=== PATIENT | female | born 1985 | race Caucasian/White ===

== ENCOUNTER → 2019-05-15 | Outpatient (CLI) | payer OTHER ==
--- NOTE | 2019-05-15 15:01 | US ---
EXAMINATION TYPE: US pelvis complete transvag DATE OF EXAM: 05/15/2019 COMPARISON: Pelvic ultrasound dated 02/09/2017 CLINICAL HISTORY: N83.202 unspecified ovary left side cyst. Hx of ovarian cysts. TECHNIQUE: Transvaginal (TV) and Transabdominal (TA) . Transabdominal sonographic images of the pel vis were acquired. Transvaginal sonographic images were medically necessary to better assess the fol lowing anatomy EXAM MEASUREMENTS: Uterus: 9.9 x 4.4 x 4.3 cm Endometrial Stripe: .5 cm Right Ovary: Obscured by bowel gas. cm Left Ovary: 5.0 x 3.7 x 4.0 cm 1. Uterus: wnl 2. Endometrium: wnl 3. Right Ovary: Obscured by overlying bowel gas 4. Left Ovary: Cystic area seen 3.9 x 3.8 x 3.0 cm. Spectral, color and waveform doppler imaging shows good arterial and venous flow within the left ov slime; there is no evidence for ovarian torsion. 5. Bilateral Adnexa: wnl 6. Posterior cul-de-sac: wnl IMPRESSION: 1. Left ovarian cyst measures 3.9 cm and appears simple, anechoic and typically benign in a premenopa usal female. Follow-up ultrasound could be performed in 3 menstrual cycles to ensure resolution. 2. Obscuration of the right ovary by overlying bowel gas.
== END | disposition home or self-care (01) ==
LOC: MERGE 12:20 → RADUSWWP 13:25
PROVIDERS: ATTEND Family Medicine
DX: N83.292 Other ovarian cyst, left side (principal)
CPT/HCPCS: 76830; 76856

== ENCOUNTER → 2020-09-24 | Outpatient (CLI) | payer MEDICARE, OTHER ==
--- NOTE | 2020-09-24 13:26 | CONS ---
CONSULTATION REASON FOR THE EVALUATION: Sleep apnea. Caitlyn is 35. She is known to me and her last evaluation was 2016 and she is being considered a new patient for now. She has chronic problems with depression and she is maintained on multiple antidepressant medications. I diagnosed this patient with obstructive sleep apnea back in 2014 and I gave her an AHI of 20 and she was treated with a CPAP pressure of 9 cm of water for chronic excessive daytime sleepiness. Over the years, she was lost to followup. She continued to use her CPAP. She has gained around 40 pounds and currently she is up to 269 pounds from a baseline of 230. She is still utilizing the same machine and her machine is functional and she is using a Simplus full-face mask, small size. Nevertheless, the patient tells me that she is having issues with snoring and sometimes she wakes up gasping despite being on the CPAP unit. I checked the CPAP machine. The machine is functional and she is averaging around 12.7 hours of CPAP use per night. Her CPAP use for more than 4 hours 100% with a leak of 6 L/minutes and her AHI is down to 2.4. She is having at times difficulty and she would need a Climate[employer]. No other complaints otherwise for now. Merrifield score is elevated as the patient is having increased tiredness and sleepiness along with her snoring overnight and her Merrifield score is currently at 12. She is averaging many hours of sleep and some times she wears her CPAP unit even when she is awake. PAST MEDICAL HISTORY: Depression, hypothyroidism, anxiety and obstructive sleep apnea. PAST SURGICAL HISTORY: Cholecystectomy and . DRUG ALLERGIES: Not known. OUTPATIENT MEDICATION LIST: Outpatient medication list includes trazodone 200 mg p.o. q. day, Trokendi 150 mg p.o. q. day, Celexa 40 mg p.o. q. day, Wellbutrin 100 mg p.o. q. day, levothyroxine 100 mcg p.o. q. day, Zofran on a p.r.n. basis, Xanax 0.5 on a p.r.n. basis and ibuprofen 800 mg on an as-needed basis. SOCIAL HISTORY: The patient is a nonsmoker. No history of alcoholism. No history of drugs. FAMILY HISTORY: Positive for heart disease, hyperlipidemia, and obstructive sleep apnea. REVIEW OF SYSTEMS: Fourteen-point review of system was done. Positive findings are mentioned in history of present illness, otherwise negative. Main abnormality noted is her ongoing history of depression and ongoing weight gain in the order of 40 pounds that was noted since her last evaluation back in 2016. No heartburn. No chest pain. No suicidal attempts. PHYSICAL EXAMINATION: VITAL SIGNS: BP is 118/79, pulse 94, respirations 16, temperature 98.6, saturation 97% on room air. Height is 5 feet 5 inches. Weight is 269, BMI is 44.7. Merrifield score is 3. Neck size 18 inches. GENERAL APPEARANCE: Calm, comfortable, obese. HEAD: Atraumatic, normocephalic. NECK: Supple. No JVD. No goiter or neck masses. Mallampati class 4. LUNGS: Clear to auscultation. HEART: Heart sounds are regular rate and rhythm. Normal S1, S2. No S3, S4. No murmurs. ABDOMEN: Soft, nontender. No organomegaly. EXTREMITIES: No edema. No cyanosis or clubbing. IMPRESSION: 1. Obstructive sleep apnea. The patient has moderate severe disease based on a previous sleep study that was done in 2014 with an AHI of 20, currently on CPAP pressure of 9. Merrifield score is up to 12 and the patient is having issues with snoring and some of her sleep apnea symptoms are clinically back and this is probably related to her 40-pound weight gain. Nevertheless, the compliance data shows that her treatment is effective and successful and she has been averaging adequate number of hours of sleep and her AHI is less than 5 while on treatment. She is pretty sure that she is snoring while on the treatment. 2. Obesity with interval weight gain. Current body mass index is 44.7. 3. History of depression. 4. Hypothyroidism. 5. Chronic anxiety. PLAN: 1. Encourage weight loss. 2. Keep the same mask interface. 3. Keep the same CPAP unit and switch it to an APAP mode, pressure minimum of 9, maximum of 20 and the patient will come and see me back in 6 weeks time to be re- evaluated. I am interested on seeing if she is going to improve while being on an APAP mode at least clinically and I am also interested in evaluating the average pressure delivered by the machine and if needed, I am going to increase the CPAP pressure accordingly. If all these measures fail, she may need another CPAP titration. I am hoping that with the above-mentioned adjustments, the patient's condition will be optimized. Refills were given. 4. See me back in 6 weeks time in followup. ISABELLA / SIMONA: [id number] /
== END | disposition home or self-care (01) ==
LOC: SLEEP 10:43
PROVIDERS: ATTEND Internal Medicine Critical Care Medicine
DX: G47.33 Obstructive sleep apnea (adult) (pediatric) (principal); E03.9 Hypothyroidism, unspecified; E66.9 Obesity, unspecified; F41.9 Anxiety disorder, unspecified; Z68.41 Body mass index [BMI] 40.0-44.9, adult; Z79.890 Hormone replacement therapy; Z86.59 Personal history of other mental and behavioral disorders
CPT/HCPCS: 99211

== ENCOUNTER → 2021-01-07 | Outpatient (CLI) | payer MEDICARE, OTHER ==
--- NOTE | 2021-01-07 17:14 | PN ---
PROGRESS NOTE Caitlyn is a 35 coming in for annual check regarding obstructive sleep apnea. She has history of severe depression. She is currently on a combination of antidepressants including trazodone and Celexa and Wellbutrin. She also takes Topamax for mood stabilizer. Doing well. Sleeping approximately 10 hours per day. She is taking trazodone 200 mg once a day and she needs her trazodone for history of depression. I checked her CPAP machine. The patient has an APAP unit at a pressure of 9 minimum, 20 maximum. Based on the compliance data, she has been using her machine every night. Her usage is for more than 4 hours is 100%, averaging around 10.9 hours of APAP use per night. Average pressure delivered by the machine is around 14.1 cm and her AHI is down to 0.9. Roachdale score is at 9. Doing well in general. There is an interval history of weight gain over many years, yet none over the past one year. REVIEW OF SYSTEMS: Fourteen-point review of system was done. Positive findings are mentioned above in history of present illness. PHYSICAL EXAMINATION: BP is 110/71, pulse 96, respirations 16, temperature 97.7, weight is 269, height is 5 feet 4 inches. Roachdale score is at 9. BMI 45.1. GENERAL APPEARANCE: Calm comfortable, obese. HEAD atraumatic, normocephalic. NECK: Supple. No JVD. No goiter or neck masses. Mallampati class 4. LUNGS: Diminished. Otherwise clear. HEART: Heart sounds are regular rate and rhythm. Normal S1, S2. No S3, S4. No murmurs. ABDOMEN: Soft, nontender. No organomegaly. EXTREMITIES: No edema, no cyanosis or clubbing. NEUROLOGIC: Awake and alert. There is no focal neurological deficits. PSYCHIATRIC: Negative for anxiety or depression. IMPRESSION: 1. Severe obstructive sleep apnea and the patient has been maintained on CPAP therapy for many years. Her baseline AHI is 20.3, worse in the supine body position with an AHI of 37.5 while supine. The patient has been successfully treated with CPAP therapy, which is in the form of APAP, minimum pressure of 9, maximum pressure of 20. 2. Obesity, BMI of 45.1. 3. Hypersomnia. 4. Depression. PLAN: Continue same pressure setting. Continue same mask interface. Encourage weight loss. Continue anti depression treatment. Treatment is successful. No need for any further changes. We will continue to follow. MMODL / IJN: [id number] /
== END | disposition home or self-care (01) ==
LOC: SLEEP 15:18
PROVIDERS: ATTEND Internal Medicine Critical Care Medicine
DX: G47.33 Obstructive sleep apnea (adult) (pediatric) (principal); G47.10 Hypersomnia, unspecified; F32.9 Major depressive disorder, single episode, unspecified; E66.9 Obesity, unspecified; Z68.42 Body mass index [BMI] 45.0-49.9, adult; Z79.899 Other long term (current) drug therapy

== ENCOUNTER → 2021-02-07 | Outpatient (CLI) | payer MEDICARE, OTHER ==
--- NOTE | 2021-02-08 05:12 | MR ---
EXAMINATION TYPE: MR brain wo con DATE OF EXAM: 02/07/2021 COMPARISON: 11/05/2018 HISTORY: Right sided facial dropp, right sided palsy, right side weakness, peripheral vison loss. Multiplanar multiecho imaging of the brain with no contrast. Ventricles have normal size. There is no mass effect nor midline shift. There is no sign of intracran ial hemorrhage. Diffusion images show no evidence of an acute infarct. There are scattered white praneeth er high signal foci in both cerebral hemispheres. The largest measures 6 mm in the right parietal lob e. Total number is approximately 7. Most of these are small and less than 3 mm. The brainstem is inta ct. Cerebellum is intact. Corpus callosum is intact. Sella turcica appears normal. There is no eviden ce of orbital mass. IMPRESSION: Scattered white matter high signal foci also present on old exam and appear not significantly differe nt. This is nonspecific and could relate to microvascular ischemia or demyelinating disease. There is significant clearing of the maxillary sinusitis compared to old exam.
== END | disposition home or self-care (01) ==
LOC: RADMRIMAIN 17:44
PROVIDERS: ATTEND Ophthalmology
DX: G51.0 Bell's palsy (principal); H53.462 Homonymous bilateral field defects, left side
CPT/HCPCS: 70551

== ENCOUNTER → 2021-07-31 | Outpatient (CLI) | payer MEDICARE, OTHER ==
[2021-07-31 13:43] VITALS: BP 155/92; PULSE 99; TEMP 98; BMI 47.9
--- NOTE | 2021-07-31 14:13 | P.HPBAR ---
Bariatric H&P - History & Physicial H&P Date: 07/31/21 History & Physicial: Visit/CC: initial clinic visit Patient initial contact: Initial weight: Initial weight in pounds: Height: 5 ft 5 in Initial BMI: Last weight: Current weight: 130.635 kg Current weight in pounds: 288.00 Current BMI: 47.9 Harrington body weight (based on NIH guidelines): 56.699 kg Excess body weight loss: The patient is a 36 year-old F who presents for Bariatric Assessment. 36-year-old female here today for evaluation of morbid obesity. Patient states she has struggled with her weight and her entire life. Current BMI 47.9. The patient suffers from diabetes, sleep apnea, depression, anxiety, hypothyroidism. Surgical history includes laparoscopic cholecystectomy and . Denies any history of DVT, GERD or dysphasia. Patient says she quit smoking cigarettes but is now sleeping occasionally. She does use a nicotine based vapor solution. Review of Systems The patient denies any acute changes in vision or hearing, no dysphagia or odynophagia, no chest pain or shortness of breath, no dysuria or hematuria, no headache, no runny nose, no rectal bleeding or melena, no unexplained weight loss Past Medical History Past Medical History: Sleep Apnea/CPAP/BIPAP, Thyroid Disorder Additional Past Medical History / Comment(s): Uses CPAP, enlarged adrenal gland. [facility] History of Any Multi-Drug Resistant Organisms: None Reported Past Surgical History: Section, Cholecystectomy Past Anesthesia/Blood Transfusion Reactions: Family History of Problems w/ Anesthesia, Postoperative Nausea & Vomiting (PONV) Additional Past Anesthesia/Blood Transfusion Reaction / Comm: Mother and sister PONV Smoking Status: Never smoker - Past Family History Mother Family Medical History: No Reported History Surgical - Exam Vital Signs Temp Pulse BP 98 F 99 155/92 07/31/21 13:41 07/31/21 13:41 07/31/21 13:41 Physical exam: General: Well-developed, well-nourished HEENT: Normocephalic, sclerae nonicteric Abdomen: Nontender, nondistended Extremities: No edema Neuro: Alert and oriented Bariatric Assessment & Plan (1) Morbid obesity with BMI of 45.0-49.9, adult Narrative/Plan: 36-year-old female with morbid obesity. Surgical options to treat morbid obesity reviewed in detail. Both gastric bypass and sleeve gastrectomy discussed along with the associated risks and benefits. Patient remains interested in sleeve gastrectomy at this time. We'll schedule for upper endoscopy at this time. Patient will continue to work on nicotine cessation. Patient will follow-up in the office after upper endoscopy completed. Status: Acute Bariatric Checklist Checklist: Plan: Checklist: EGD: 1. Hiatal hernia: 2. H. Pylori: HgbA1c: Vitamin D: Smoking: Current every day smoker Primary care physician referral: Psychiatry clearance: Cardiology clearance: Sleep study: Diet journal: VTE risk score: VTE risk level: Rehab needs at discharge:
== END | disposition home or self-care (01) ==
LOC: BARWHC3 13:19
PROVIDERS: ATTEND Surgery
DX: E66.01 Morbid (severe) obesity due to excess calories (principal); Z68.42 Body mass index [BMI] 45.0-49.9, adult
CPT/HCPCS: 99211

== ENCOUNTER → 2021-08-01 | Outpatient (CLI) | payer MEDICARE, OTHER ==
[2021-08-01 19:37] LABS: Folate, Serum 6.9 ng/mL (4.40-31.00)
== END | disposition home or self-care (01) ==
LOC: LABWHC1 10:52
PROVIDERS: ATTEND Surgery
DX: E66.01 Morbid (severe) obesity due to excess calories (principal); K90.89 Other intestinal malabsorption; E55.9 Vitamin D deficiency, unspecified
CPT/HCPCS: 36415; 82306; 82607; 82746; 83540; 84425

== ENCOUNTER 2021-09-02 09:17 | Day surgery (SDC) | payer MEDICARE, OTHER ==
[2021-08-29 10:15] VITALS: BMI 49.4
[~2021-09-02 09:17] MED LIST: LACTATED RINGERS 1,000 ML IV SCH; LIDOCAINE 1% (10MG/ML) FOR IV START INTRADERMA PRN
[2021-09-02 10:14] VITALS: RESP 16; TEMP 97.9
[2021-09-02 10:16] LABS: Glucose,Whole Blood 126 mg/dL (75-99)
[2021-09-02] MEDS ORDERED: LIDOCAINE 1% INJ 10MG/ML (20 ML MDV) ONE (11:01)
[2021-09-02] MEDS ORDERED: PROPOFOL 10 MG/ML 20 ML VIAL IV ONE (11:01)
--- NOTE | 2021-09-02 11:04 | P.GSHP ---
History of Present Illness H&P Date: 09/02/21 Chief Complaint: GERD, presurgical 36-year-old female here today for upper endoscopy. Being evaluated for sleep gastrectomy. Mild reflux at times. No pain. Past Medical History Past Medical History: Diabetes Mellitus, Sleep Apnea/CPAP/BIPAP, Thyroid Disorder Additional Past Medical History / Comment(s): Uses CPAP, tinea versicolor-fungus on back , chest & neck., migraines. History of Any Multi-Drug Resistant Organisms: None Reported Past Surgical History: Section, Cholecystectomy Past Anesthesia/Blood Transfusion Reactions: Postoperative Nausea & Vomiting (PONV) Additional Past Anesthesia/Blood Transfusion Reaction / Comment(s): Mother=ponv Past Psychological History: Anxiety, Bipolar, Depression, Panic Disorder Smoking Status: Former smoker, Vaper Past Alcohol Use History: None Reported Additional Past Alcohol Use History / Comment(s): quit smoking 1 year ago (2020) and started vaping, quit vaping Jul. hx of 1 ppd, started smoking age 13. Past Drug Use History: None Reported - Past Family History Mother Family Medical History: No Reported History Medications and Allergies Home Medications Medication Instructions Recorded Confirmed Type ALPRAZolam [Xanax] 0.5 mg PO Q8HR PRN 11/03/14 09/02/21 History Levothyroxine Sodium [Synthroid] 100 mcg PO DAILY 11/03/14 09/02/21 History Ondansetron Odt [Zofran Odt] 4 - 8 mg PO DIRECTED PRN 11/03/14 09/02/21 History traZODone HCL [Desyrel] 200 mg PO HS 12/13/18 09/02/21 History Ibuprofen [Motrin] 800 mg PO DIRECTED PRN 07/31/21 09/02/21 History Ramelteon 8 mg PO HS 07/31/21 09/02/21 History SUMAtriptan SUCCINATE [Imitrex] 25 mg PO DIRECTED PRN 07/31/21 09/02/21 History Topiramate 50 mg PO DAILY 07/31/21 09/02/21 History lamoTRIgine [lamoTRIgine ER] 50 mg PO HS 07/31/21 09/02/21 History Brendan/D3/Mag11/Zinc/Instrument Tech/Richy/Bor 1 each PO DAILY 08/29/21 09/02/21 History [Caltrate 600+D Plus Tablet] Cyclobenzaprine [Flexeril] 10 mg PO HS 08/29/21 09/02/21 History Vilazodone HCl [Viibryd] 40 mg PO HS 08/29/21 09/02/21 History buPROPion SR [Wellbutrin SR] 150 mg PO DAILY 08/29/21 09/02/21 History metFORMIN HCL [metFORMIN HCL ER] 1,000 mg PO BID 08/29/21 09/02/21 History Allergies Allergy/AdvReac Type Severity Reaction Status Date / Time No Known Allergies Allergy Verified 09/02/21 10:11 Surgical - Exam Vital Signs Temp Pulse Resp BP Pulse Ox 97.9 F 92 16 136/90 94 L 09/02/21 09:54 09/02/21 09:54 09/02/21 09:54 09/02/21 09:54 09/02/21 09:54 Physical exam: General: Well-developed, well-nourished HEENT: Normocephalic, sclerae nonicteric Abdomen: Nontender, nondistended Extremities: No edema Neuro: Alert and oriented Results - Labs Abnormal Lab Results - Last 24 Hours (Table) 09/02/21 Range/Units 10:05 POC Glucose (mg/dL) 126 H (75-99) mg/dL Assessment and Plan (1) GERD (gastroesophageal reflux disease) Narrative/Plan: Will proceed with upper endoscopy Current Visit: Yes Status: Acute Code(s): K21.9 - GASTRO-ESOPHAGEAL REFLUX DISEASE WITHOUT ESOPHAGITIS SNOMED Code(s): 430568875
--- NOTE | 2021-09-02 11:13 | P.PCN ---
Date of Procedure: 09/02/21 Procedure(s) Performed: Preoperative Dx: GERD, presurgical Postoperative Dx: Gastritis Procedure: EGD with Bx Anesthesia: Sedation Endoscopist: Dr. Vicente Specimens: Antrum Endoscopic Procedure: The patient was on the endoscopy table in the left decubitus position. The Olympus gastroscope was inserted into the oropharynx and passed under direct visualization to the region of the third portion of the duodenum. From that point the scope was slowly withdrawn inspecting all surfaces carefully. There were no neoplastic inflammatory or polypoid lesions throughout the duodenum. The pylorus was widely patent. The stomach was carefully inspected. There was diffuse gastritis present. The mucosa appeared slightly thickened. There was no ulcerations. A biopsy of the antrum took place to rule out H. pylori. Retroflexion revealed a normal hiatus. The esophagus was then carefully examined. There were no neoplastic inflammatory or polypoid lesions throughout the visualized esophagus. The patient was then taken to the recovery room in stable condition per anesthesia guidelines. Recommendations: Begin antiacid therapy. Await biopsy results. Follow-up bariatric clinic.
[2021-09-02 11:38] VITALS: BP 103/68; PULSE 93
== END 2021-09-02 11:59 | disposition home or self-care (01) ==
LOC: ORWHC2ENDO 09:17
PROVIDERS: ATTEND Surgery
DX: K29.50 Unspecified chronic gastritis without bleeding (principal); K21.9 Gastro-esophageal reflux disease without esophagitis; E11.9 Type 2 diabetes mellitus without complications; G47.33 Obstructive sleep apnea (adult) (pediatric); E07.9 Disorder of thyroid, unspecified; G43.909 Migraine, unspecified, not intractable, without status migrainosus; F41.9 Anxiety disorder, unspecified; F31.9 Bipolar disorder, unspecified; F41.0 Panic disorder [episodic paroxysmal anxiety]; F17.290 Nicotine dependence, other tobacco product, uncomplicated; Z79.84 Long term (current) use of oral hypoglycemic drugs; Z79.890 Hormone replacement therapy; Z79.899 Other long term (current) drug therapy
CPT/HCPCS: 81025; 88305; 84703; 43239; J2001; J2704

== ENCOUNTER → 2021-09-08 | Outpatient (CLI) | payer MEDICARE, OTHER ==
[2021-09-08 11:02] VITALS: BMI 48.6
== END | disposition home or self-care (01) ==
LOC: BARWHC3 08:47
PROVIDERS: ATTEND Surgery
DX: E66.01 Morbid (severe) obesity due to excess calories (principal); Z71.3 Dietary counseling and surveillance
CPT/HCPCS: 97804

== ENCOUNTER → 2021-09-09 | Outpatient (CLI) | payer MEDICARE, OTHER ==
[2021-09-10 15:47] LABS: Anabasine Urine <2.0 ng/mL (<2.0)
== END | disposition home or self-care (01) ==
LOC: LABWHC1 12:15
PROVIDERS: ATTEND Surgery
DX: Z71.51 Drug abuse counseling and surveillance of drug abuser (principal)
CPT/HCPCS: 80323

== ENCOUNTER → 2021-09-16 | Outpatient (CLI) | payer MEDICARE, OTHER ==
[2021-09-16 13:10] VITALS: BP 138/84; PULSE 101; RESP 16; TEMP 98.1; BMI 48.1
--- NOTE | 2021-09-16 13:45 | P.BASOAP ---
Subjective Progress Note Date: 09/16/21 Principal diagnosis: Morbid obesity Patient returns for evaluation. Underwent recent EGD showing mild gastritis. She was H. pylori negative. She had a recent nicotine test that was negative. Otherwise no new changes to her history and physical from previous. Objective - Vital Signs Vital signs: Vital Signs Temp 98.1 F 09/16/21 13:08 Pulse 101 H 09/16/21 13:08 Resp 16 09/16/21 13:08 BP 138/84 09/16/21 13:08 Pulse Ox Intake & Output 09/15/21 09/16/21 09/16/21 18:59 06:59 18:59 Weight 131.088 kg - Exam Abdomen: Soft, nontender, nondistended Assessment/Plan (1) Morbid obesity with BMI of 45.0-49.9, adult Narrative/Plan: 36-year-old female with morbid obesity and associated comorbidities. We'll schedule for upcoming sleeve gastrectomy. Discussed with patient that this may or may not be performed robotically on the date chosen which is tentatively 11/03. The risks of bleeding, infection, stenosis, stricture, leak, abscess, fistula formation, peritonitis, poor weight loss, reflux, vomiting, conversion to an open procedure, aborting sleeve gastrectomy, FL, PE, DVT, and were discussed. The patient understands and wishes to proceed. Plan: Date: 09/16/21 Initial Weight: 130.805 kg Initial BMI: 47.9 Current Weight: 131.088 kg Current BMI: 48.1 Type of Surgery: Total Volume in Band: Previous Volume: Volume Removed: Volume Added: Band Size:
== END | disposition home or self-care (01) ==
LOC: BARWHC3 12:43
PROVIDERS: ATTEND Surgery
DX: E66.01 Morbid (severe) obesity due to excess calories (principal); Z68.42 Body mass index [BMI] 45.0-49.9, adult
CPT/HCPCS: 99211

== ENCOUNTER → 2021-09-17 | Outpatient (CLI) | payer MEDICARE, OTHER ==
--- NOTE | 2021-09-17 09:27 | US ---
EXAMINATION TYPE: US abdomen limited DATE OF EXAM: 09/17/2021 COMPARISON: CT, US CLINICAL HISTORY: R94.5 ABNORMAL RESULTS OF LIVER FUNCTION STUDIES. Abnormal results of liver functio n studies. Hx cholecystectomy. EXAM MEASUREMENTS: Liver Length: 20.8 CBD: Not seen with certainty, measured at 0.37 cm. Right Kidney: 13.0 x 7.0 x 5.2 cm. Limited due to body habitus and overlying bowel gas. Pancreas: Tail not well seen. Liver: Appears enlarged, very coarse in echotexture, increased attenuation. Gallbladder: Prior cholecystectomy. Evidence for sonographic Lima's sign: No CBD: Not seen with certainty, measured at 0.37 cm. Right Kidney: Appears enlarged. No hydronephrosis or masses seen. IMPRESSION: Hepatomegaly with underlying hepatic steatosis.
== END | disposition home or self-care (01) ==
LOC: RADUSWWP 08:46
PROVIDERS: ATTEND Family Medicine
DX: R94.5 Abnormal results of liver function studies (principal)
CPT/HCPCS: 76705

== ENCOUNTER → 2021-11-06 | Outpatient (CLI) | payer MEDICARE, OTHER ==
[2021-11-06 14:31] LABS: Basophils # (A) 0.02 X 10*3/uL (0.00-0.10); Basophils % (A) 0.3 %; Eosinophils # (A) 0.14 X 10*3/uL (0.04-0.35); Eosinophils % (A) 2.1 %; HCT 44.2 % (37.2-46.3); HGB 14.8 g/dL (12.0-15.0); Immature Grans, Automated 0.4 %; Lymphocytes # (A) 3.57 X 10*3/uL (0.90-5.00); Lymphocytes % (A) 52.8 %; MCH 31.6 pg (27.0-32.0); MCHC 33.5 g/dL (32.0-37.0); MCV 94.4 fL (80.0-97.0); Mean Platelet Volume 9.8 fL (9.5-12.2); Monocytes # (A) 0.32 X 10*3/uL (0.20-1.00); Monocytes % (A) 4.7 %; NRBC Per 100 WBC 0 /100 WBCS (0.0-0.0); Neutrophils # (A) 2.68 X 10*3/uL (1.80-7.70); Neutrophils % (A) 39.7 %; Platelet Count 191 X 10*3/uL (140-440); RBC 4.68 X 10*6/uL (4.10-5.20); WBC 6.76 X 10*3/uL (4.50-10.00)
[2021-11-06 15:18] LABS: African American GFR (CKD) 119.4 (60.0-200.0); Albumin/Globulin Ratio 1.28 (1.60-3.17); Anion Gap 13.1 mmol/L (10.00-18.00); BUN/Creat Ratio 18.57 Ratio (12.00-20.00); Blood Urea Nitrogen 13.8 mg/dL (9.0-27.0); Calcium 9.6 mg/dL (8.7-10.3); Globulin 3.2 g/dL (1.6-3.3); Potassium 4.3 mmol/L (3.5-5.5); Total Bilirubin 0.2 mg/dL (0.30-1.20); Total Protein 7.2 g/dL (6.2-8.2)
== END | disposition home or self-care (01) ==
LOC: LABPAT 08:30
PROVIDERS: ATTEND Surgery
DX: Z01.812 Encounter for preprocedural laboratory examination (principal)
CPT/HCPCS: 36415; 80053; 85025

== ENCOUNTER 2021-11-10 06:21 | Inpatient (IN) | payer MEDICARE, OTHER ==
[~2021-11-10 06:21] MED LIST changes: +DEXAMETHASONE SOD PHOSPHATE 4 MG/ML 1 ML VIAL IV ONE; +ENOXAPARIN 40 MG/0.4 ML SYRINGE SQ PRN; +HYDROmorphone 0.5 MG/0.5 ML SYRINGE IVP PRN; -LACTATED RINGERS 1,000 ML IV SCH; +MIDAZOLAM 2 MG/2 ML VIAL IV PRN; +ONDANSETRON 4 MG/2 ML VIAL IVP ONE; +ceFAZolin 3 GM in SODIUM CHLORIDE 0.9% 100 ML IVPB PRN
[2021-11-10] MEDS: LACTATED RINGERS 1,000 ML IV SCH ×2 (07:19→23:58)
[2021-11-10 07:26] LABS: Glucose,Whole Blood 129 mg/dL (75-99)
--- NOTE | 2021-11-10 07:28 | P.GSHP ---
History of Present Illness H&P Date: 11/10/21 Chief Complaint: Morbid obesity 36-year-old female here today for elective sleeve gastrectomy. Patient was seen first in July at the bariatric clinic. Initial BMI 47.9, today's BMI 47.0. Patient suffers from diabetes and sleep apnea depression anxiety hypothyroidism. Past surgical history includes laparoscopic cholecystectomy and . Patient had recent nicotine testing done reportedly normal. No history of DVT or dysphagia. Past Medical History Past Medical History: Diabetes Mellitus, Sleep Apnea/CPAP/BIPAP, Thyroid Disorder Additional Past Medical History / Comment(s): Uses CPAP, hypopigmented areas on back , chest & neck, seeing derm. soon, migraines. History of Any Multi-Drug Resistant Organisms: None Reported Past Surgical History: Section, Cholecystectomy Past Anesthesia/Blood Transfusion Reactions: Postoperative Nausea & Vomiting (PONV) Additional Past Anesthesia/Blood Transfusion Reaction / Comment(s): Mother=ponv Smoking Status: Former smoker, Vaper - Past Family History Mother Family Medical History: No Reported History Medications and Allergies Home Medications Medication Instructions Recorded Confirmed Type ALPRAZolam [Xanax] 0.5 mg PO Q8HR PRN 11/03/14 11/10/21 History Levothyroxine Sodium [Synthroid] 100 mcg PO DAILY 11/03/14 11/10/21 History Ondansetron Odt [Zofran Odt] 4 - 8 mg PO DIRECTED PRN 11/03/14 11/10/21 History traZODone HCL [Desyrel] 200 mg PO HS 12/13/18 11/10/21 History Ibuprofen [Motrin] 800 mg PO DIRECTED PRN 07/31/21 11/06/21 History Ramelteon 8 mg PO HS 07/31/21 11/10/21 History SUMAtriptan SUCCINATE [Imitrex] 25 mg PO DIRECTED PRN 07/31/21 11/10/21 History Topiramate 50 mg PO DAILY 07/31/21 11/10/21 History lamoTRIgine [lamoTRIgine ER] 50 mg PO HS 07/31/21 11/10/21 History Brendan/D3/Mag11/Zinc/Drafter Seismograph/Richy/Bor 1 each PO DAILY 08/29/21 11/06/21 History [Caltrate 600+D Plus Tablet] Cyclobenzaprine [Flexeril] 10 mg PO HS 08/29/21 11/10/21 History Vilazodone HCl [Viibryd] 40 mg PO HS 08/29/21 11/10/21 History buPROPion SR [Wellbutrin SR] 150 mg PO DAILY 08/29/21 11/10/21 History metFORMIN HCL [metFORMIN HCL ER] 1,000 mg PO AC-SUPPER 08/29/21 11/10/21 History Allergies Allergy/AdvReac Type Severity Reaction Status Date / Time No Known Allergies Allergy Verified 11/10/21 06:48 Surgical - Exam Vital Signs Temp Pulse Resp BP Pulse Ox 97.9 F 104 H 16 117/64 95 11/10/21 07:01 11/10/21 07:01 11/10/21 07:01 11/10/21 07:01 11/10/21 07:01 Physical exam: General: Well-developed, well-nourished HEENT: Normocephalic, sclerae nonicteric Abdomen: Nontender, nondistended Extremities: No edema Neuro: Alert and oriented Results - Labs Abnormal Lab Results - Last 24 Hours (Table) 11/10/21 Range/Units 07:19 POC Glucose (mg/dL) 129 H (75-99) mg/dL Assessment and Plan (1) Morbid obesity with BMI of 45.0-49.9, adult Narrative/Plan: 36-year-old female with morbid obesity and associated comorbidities. We'll proceed with the da Mandy assisted laparoscopic sleeve gastrectomy, possible open. The risks of bleeding, infection, stenosis, stricture, leak, abscess, fistula formation, peritonitis, poor weight loss, reflux, vomiting, conversion to an open procedure, aborting sleeve gastrectomy, MT, PE, DVT, and were discussed. The patient understands and wishes to proceed. Current Visit: No Status: Acute Code(s): E66.01 - MORBID (SEVERE) OBESITY DUE TO EXCESS CALORIES; Z68.42 - BODY MASS INDEX [BMI] 45.0-49.9, ADULT SNOMED Code(s): 007021968
[2021-11-10] MEDS ORDERED: ACETAMINOPHEN IV (For NPO) 1,000 MG in EMPTY BAG 1 BAG IVPB STA (07:37)
[2021-11-10] MEDS ORDERED: SCOPOLAMINE 1 MG/72 HR PATCH TRANSDERM ONE (07:45)
[2021-11-10] MEDS ORDERED: LABETALOL 5 MG/ML VIAL MDV ONE (07:51)
[2021-11-10] MEDS ORDERED: GLYCOPYRROLATE 0.2 MG/ML 2 ML VIAL ONE (07:51)
[2021-11-10] MEDS ORDERED: ROCURONIUM 10 MG/ML (5 ML VIAL) IV ONE (07:51)
[2021-11-10] MEDS ORDERED: MIDAZOLAM 2 MG/2 ML VIAL ONE (07:51)
[2021-11-10] MEDS ORDERED: LIDOCAINE 2% INJ 20 MG/ML (2 ML VIAL) ONE (07:51)
[2021-11-10] MEDS ORDERED: SUCCINYLCHOLINE CHLORIDE 100 MG/5 ML SYR IV ONE (07:51)
[2021-11-10] MEDS ORDERED: PROPOFOL 10 MG/ML 20 ML VIAL IV ONE (07:51)
[2021-11-10] MEDS ORDERED: NEOSTIGMINE 1 MG/ML 10 ML VIAL ONE (07:51)
[2021-11-10] MEDS ORDERED: fentaNYL (PF) 50 MCG/ML 2 ML AMP ONE (07:51)
[2021-11-10] MEDS ORDERED: HYDROmorphone (PF) 1 MG/ML ONE (07:51)
[2021-11-10] MEDS ORDERED: BUPIVACAIN-EPI 0.25%-1:200,000 30 ML VIAL SQ ONE ×2 (08:16)
[2021-11-10] MEDS ORDERED: LACTATED RINGERS 1,000 ML IV ONE (09:19)
[2021-11-10] MEDS ORDERED: SIMETHICONE 40 MG/0.6 ML DROPS 2,000 MG/30 ML BOTTLE PO PRN (10:14)
[2021-11-10] MEDS ORDERED: diphenhydrAMINE 50 MG/ML 1 ML VIAL IVP PRN (10:14)
[2021-11-10] MEDS ORDERED: HYOSCYAMINE ORAL DROPS 1.875 MG/15 ML BOTTLE PO PRN (10:14)
[2021-11-10] MEDS ORDERED: NALOXONE 0.4 MG/ML 1 ML VIAL IV PRN (10:14)
--- NOTE | 2021-11-10 10:28 | P.OP ---
Date of Procedure: 11/10/21 Procedure(s) Performed: PREOPERATIVE DIAGNOSIS: Morbid obesity, diabetes, sleep apnea, hypothyroidism POSTOPERATIVE DIAGNOSIS: Same PROCEDURE: Da Mandy assisted laparoscopic sleeve gastrectomy SURGEON: Jules EBL: 20 mL ANESTHESIA: General COMPLICATIONS: None OPERATIVE PROCEDURE: Patient was placed in the operating table in the supine position. She was placed under general anesthesia at that time. The abdomen was prepped and draped in the usual sterile fashion. A 5 mm optical trocar was placed in the left periumbilical location 20 cm inferior to the xiphoid process. Insufflation took place up to 15 mmHg. No adhesions were seen. An additional 12 mm trocar was placed in the right paramedian location and 2 additional 8 mm trochars were placed in the left upper quadrant laterally. All of these trochars were placed along the same plane. The initial 5 was then switched to an 8 mm trocar. A 5 mm subxiphoid incision was made and the medium Brook retractor was used to elevate the left lobe of liver anteriorly. This was held in place using the fixed arm retractor. The robot was then docked appropriately. The 8 mm camera was placed in the left paramedian trocar site directed downwards. A fenestrated bipolar was placed in arm 1, arm 3 had the vessel sealer, arm 4 had the tip up retractor. The hiatus was inspected and there was no visible hiatal hernia. At that point I moved to the mid aspect of the greater curvature the stomach. The short gastric vasculature were divided using the vessel sealer. This dissection took place distally until we were 4 cm from the pylorus. The posterior adhesions were divided as well. The dissection then took place proximally along the stomach until the posterior short gastrics were divided and the fundus of the stomach was fully mobilized. Once the stomach was fully mobilized the blunt tipped 40-Slovenian bougie dilator was advanced into the stomach and advanced all the way to the prepyloric location. The patient's stomach by palpation seemed to be average or slightly less than average in thickness. The green load stapler was first utilized. No buttressing was utilized. 2 firings of the green load stapler took place and then we switched to the blue load. The last 2 firings of the stapler were white load. The stomach was then placed in the right upper quadrant after it was fully excised. The oral gastric tube was reinserted. The stomach was insufflated with approximately 100 mL of methylene blue. No evidence of leak or obstruction was seen. 2 areas of bleeding were seen along the staple line. One was close to the initial firing of the green load stapler and this was controlled using the eye polar cautery sparingly. The other was along the mid aspect of the sleeve and controlled using a 5 mm clipper. Tisseel fibrin glue was used along the length of the staple line. The robot was then undocked. The da Mandy laparoscope was used and the stomach was removed from the 12 mm trocar site without difficulty. The fascia at the 12mm site was closed using interrupted 0 Vicryl sutures with the laparoscopic suture passer and Jak Serenity technique. The insufflation was evacuated. The skin at all 5 incisions were closed using 4-0 Monocryl sutures. Skin glue was then applied. DISPOSITION: Stable to recovery room
[2021-11-10 12:05] LABS: Glucose,Whole Blood 174 mg/dL (75-99)
[2021-11-10] MEDS: ACETAMINOPHEN IV (For NPO) 1,000 MG in EMPTY BAG 1 BAG IVPB SCH ×4 (12:08→23:59)
[2021-11-10] MEDS: 0.9% NACL WITH KCL 20 MEQ/L 1,000 ML IV SCH ×2 (12:09→19:12)
[2021-11-10] MEDS ORDERED: ALPRAZolam 0.5 MG TAB PO PRN (12:31)
[2021-11-10] MEDS ORDERED: TEMAZEPAM 15 MG CAP PO PRN (12:31)
[2021-11-10] MEDS ORDERED: SUMAtriptan succinate 25 MG TAB PO PRN (12:31)
[2021-11-10] MEDS: ALBUTEROL NEBULIZED 2.5 MG/3 ML INHALATION SCH ×3 (13:24→20:51)
--- NOTE | 2021-11-10 13:58 | P.CONS ---
History of Present Illness - Reason for Consult Consult date: 11/10/21 Requesting physician: Bryan Vicente - History of Present Illness This is a pleasant 36 year old female who is evaluated today post operative Da Mandy assisted laparoscopic sleeve gastrectomy with Dr Vicente. We are asked to see in consultation regarding management for patients chronic conditions including diabetes mellitus, depression, anxiety, bipolar, sleep apnea with CPAP use, hypothyroidism. Patient has a previous history also of laproscopic cholecystectomy and section. Patient is a former smoker quit earlier this year. Current home medications include trazodone, Lamictal, viibryd, Topamax, Imitrex, Wellbutrin, ramelteon, Flexeril, Xanax. She takes metformin once daily, and takes levothyroxine. Preoperative blood count unremarkable, preoperative blood glucose in the 130s, most recent A1c of 7.9 in July of this year. Liver enzymes also elevated preoperatively. Patient is afebrile, heart rate 70 tachycardic 102, blood pressure 140/79, she is 95% on 2L nasal cannula, she does not wear oxygen at home. Tolerated procedure well and is evaluated on the floor. She is anxious to be able to get up and out of bed. REVIEW OF SYSTEMS: CONSTITUTIONAL: No fever, no malaise, no fatigue. HEENT: No recent visual problems or hearing problems. Denied any sore throat. CARDIOVASCULAR: No chest pain, orthopnea, PND, no palpitations, no syncope. PULMONARY: No shortness of breath, no cough, no hemoptysis. GASTROINTESTINAL: No diarrhea, no nausea, no vomiting, no abdominal pain. NEUROLOGICAL: No headaches, no weakness, no numbness. HEMATOLOGICAL: Denies any bleeding or petechiae. GENITOURINARY: Denies any burning micturition, frequency, or urgency. MUSCULOSKELETAL/RHEUMATOLOGICAL: Denies any joint pain, swelling, or any muscle pain. ENDOCRINE: Denies any polyuria or polydipsia. The rest of the 14-point review of systems is negative. PHYSICAL EXAMINATION: GENERAL: The patient is alert and oriented x3, not in any acute distress. Well developed, well nourished. Obese. HEENT: Pupils are round and equally reacting to light. EOMI. No scleral icterus. No conjunctival pallor. Normocephalic, atraumatic. No pharyngeal erythema. No thyromegaly. CARDIOVASCULAR: S1 and S2 present. No murmurs, rubs, or gallops. PULMONARY: Chest is clear to auscultation, no wheezing or crackles. ABDOMEN: Soft, tender, mild distention, post surgical abdomen. MUSCULOSKELETAL: No joint swelling or deformity. EXTREMITIES: No cyanosis, clubbing, or pedal edema. NEUROLOGICAL: Gross neurological examination did not reveal any focal deficits. SKIN: No rashes. Assessment and Plan Assessment Morbid obesity post operative laproscopic sleeve gastrectomy Diabetes Mellitus type 2 with hyperglycemia Sleep apnea with CPAP use Hypothyroidism Anxiety / Depression / Bipolar / Panic Disorder History of migraines Former tobacco use Obesity GI Prophylaxis DVT Prophylaxis as per primary Full Code Plan Resume appropriate home medications Hold metformin Novolog s/s for blood glucose coverage, accuchecks ACHS Continue with NPO with Ice chips diet Upper GI tomorrow morning Encourage IS Encourage ambulation Repeat labs in AM Thank you kindly for this consultation. The impression and plan of care has been dictated by Kely Goetz, Nurse Practitioner as directed. Dr. Katerin MD I have performed a history and physical examination and medical decision making of this patient, discussed the same with the dictator, and agree with the dictators assessment and plan as written, documented as a scribe. Based on total visit time, I have performed more than 50% of this visit. Past Medical History Past Medical History: Diabetes Mellitus, Sleep Apnea/CPAP/BIPAP, Thyroid Di sorder Additional Past Medical History / Comment(s): Uses CPAP, hypopigmented areas on back , chest & neck, seeing derm. soon, migraines. History of Any Multi-Drug Resistant Organisms: None Reported Past Surgical History: Section, Cholecystectomy Past Anesthesia/Blood Transfusion Reactions: Postoperative Nausea & Vomiting (PONV) Additional Past Anesthesia/Blood Transfusion Reaction / Comm: Mother=ponv Smoking Status: Former smoker, Vaper - Past Family History Mother Family Medical History: No Reported History Medications and Allergies Home Medications Medication Instructions Recorded Confirmed Type ALPRAZolam [Xanax] 0.5 mg PO Q8HR PRN 11/03/14 11/10/21 History Levothyroxine Sodium [Synthroid] 100 mcg PO DAILY 11/03/14 11/10/21 History Ondansetron Odt [Zofran Odt] 4 - 8 mg PO DIRECTED PRN 11/03/14 11/10/21 History traZODone HCL [Desyrel] 200 mg PO HS 12/13/18 11/10/21 History Ibuprofen [Motrin] 800 mg PO DIRECTED PRN 07/31/21 11/06/21 History Ramelteon 8 mg PO HS 07/31/21 11/10/21 History SUMAtriptan SUCCINATE [Imitrex] 25 mg PO DIRECTED PRN 07/31/21 11/10/21 History Topiramate 50 mg PO DAILY 07/31/21 11/10/21 History lamoTRIgine [lamoTRIgine ER] 50 mg PO HS 07/31/21 11/10/21 History Brendan/D3/Mag11/Zinc/Rotary Swaging Machine Operator/Richy/Bor 1 each PO DAILY 08/29/21 11/06/21 History [Caltrate 600+D Plus Tablet] Cyclobenzaprine [Flexeril] 10 mg PO HS 08/29/21 11/10/21 History Vilazodone HCl [Viibryd] 40 mg PO HS 08/29/21 11/10/21 History buPROPion SR [Wellbutrin SR] 150 mg PO DAILY 08/29/21 11/10/21 History metFORMIN HCL [metFORMIN HCL ER] 1,000 mg PO AC-SUPPER 08/29/21 11/10/21 History Allergies Allergy/AdvReac Type Severity Reaction Status Date / Time No Known Allergies Allergy Verified 11/10/21 06:48 Physical Exam Vitals: Vital Signs Temp Pulse Pulse Resp BP BP Pulse Ox 11/10/21 13:00 100 140/79 91 L 11/10/21 12:45 99 138/90 11/10/21 12:30 102 H 136/89 95 11/10/21 12:15 103 H 157/92 11/10/21 12:00 104 H 148/85 96 11/10/21 11:45 98 153/84 95 11/10/21 11:30 98.5 F 96 17 144/85 94 L 11/10/21 11:16 93 16 142/68 98 11/10/21 11:01 94 16 137/73 98 11/10/21 10:46 89 16 143/74 98 11/10/21 10:31 100 16 135/74 98 11/10/21 10:15 98 F 97 16 117/66 98 11/10/21 07:01 97.9 F 104 H 16 117/64 95 Intake and Output 11/09/21 11/10/21 11/10/21 22:59 06:59 14:59 Intake Total 1700 Output Total 20 Balance 1680 Intake: IV 1700 Output: Estimated Blood Loss 20 Other: Weight 128 kg Results Labs: Abnormal Lab Results - Last 24 Hours (Table) 11/10/21 11/10/21 Range/Units 07:19 12:03 POC Glucose (mg/dL) 129 H 174 H (75-99) mg/dL Assessment and Plan Time with Patient: Less than 30
[2021-11-10] MEDS: INSULIN ASPART (NovoLOG) 100 UNIT/ML VIAL SQ SCH ×3 (14:07→21:10)
[2021-11-10] MEDS ORDERED: ALPRAZolam 0.5 MG TAB PO STA (15:06)
[2021-11-10 16:21] LABS: Glucose,Whole Blood 147 mg/dL (75-99)
[2021-11-10] MEDS: HYDROmorphone 1 MG/ML 1 ML SYRINGE IVP PRN (17:30)
[2021-11-10] MEDS: ONDANSETRON 4 MG/2 ML VIAL IVP PRN (17:35)
[2021-11-10 21:08] LABS: Glucose,Whole Blood 115 mg/dL (75-99)
[2021-11-10] MEDS: lamoTRIgine 25 MG TAB PO SCH (21:20)
[2021-11-10] MEDS ORDERED: LORazepam 2 MG/ML INJ IV ONE (21:30)
[2021-11-11] MEDS: 0.9% NACL WITH KCL 20 MEQ/L 1,000 ML IV SCH ×4 (01:59→17:55)
[2021-11-11] MEDS: LEVOTHYROXINE 100 MCG TAB PO SCH (02:23)
[2021-11-11] MEDS: HYDROmorphone 1 MG/ML 1 ML SYRINGE IVP PRN (03:56)
[2021-11-11] MEDS: ONDANSETRON 4 MG/2 ML VIAL IVP PRN ×3 (04:00→23:12)
[2021-11-11] MEDS: ACETAMINOPHEN IV (For NPO) 1,000 MG in EMPTY BAG 1 BAG IVPB SCH ×4 (06:13→23:14)
[2021-11-11 06:49] LABS: Glucose,Whole Blood 100 mg/dL (75-99)
[2021-11-11] MEDS: INSULIN ASPART (NovoLOG) 100 UNIT/ML VIAL SQ SCH ×4 (08:40→20:54)
[2021-11-11] MEDS: ENOXAPARIN 30 MG/0.3 ML SYRINGE SQ SCH (08:41)
[2021-11-11] MEDS: lamoTRIgine 25 MG TAB PO SCH ×3 (08:42→21:05)
[2021-11-11] MEDS: PANTOPRAZOLE 40 MG/10 ML VIAL IV SCH (08:42)
[2021-11-11] MEDS: buPROPion SR 150 MG TABLET.ER PO SCH (08:42)
[2021-11-11] MEDS: TOPIRAMATE 25 MG TAB PO SCH (08:43)
[2021-11-11 09:14] LABS: Basophils # (A) 0.03 X 10*3/uL (0.00-0.10); Basophils % (A) 0.3 %; Eosinophils # (A) 0.03 X 10*3/uL (0.04-0.35); Eosinophils % (A) 0.3 %; HCT 38.4 % (37.2-46.3); HGB 12.7 g/dL (12.0-15.0); Immature Grans, Automated 0.5 %; Lymphocytes # (A) 3.71 X 10*3/uL (0.90-5.00); Lymphocytes % (A) 37.5 %; MCH 31.6 pg (27.0-32.0); MCHC 33.1 g/dL (32.0-37.0); MCV 95.5 fL (80.0-97.0); Monocytes # (A) 0.55 X 10*3/uL (0.20-1.00); Monocytes % (A) 5.6 %; NRBC Per 100 WBC 0 /100 WBCS (0.0-0.0); Neutrophils # (A) 5.52 X 10*3/uL (1.80-7.70); Neutrophils % (A) 55.8 %; Platelet Count 185 X 10*3/uL (140-440); RBC 4.02 X 10*6/uL (4.10-5.20); WBC 9.89 X 10*3/uL (4.50-10.00)
[2021-11-11] MEDS: ALBUTEROL NEBULIZED 2.5 MG/3 ML INHALATION SCH ×3 (09:17→15:25)
--- NOTE | 2021-11-11 09:22 | FL ---
EXAMINATION TYPE: FL UGI DATE OF EXAM: 11/11/2021 LIMITED UGI: CLINICAL HISTORY: Morbid Obesity, gastric sleeve surgery yesterday. TECHNIQUE: Limited esophagram is performed utilizing 30oz of Isovue-370. A total of 2 minutes and 9 seconds of fluoroscopic time was utilized during procedure and 32 images obtained. COMPARISON: None. FINDINGS: The patient swallowed contrast without difficulty or delay. Esophageal peristalsis and mo tility are within normal limits. There is good flow of contrast along the diaphragmatic hiatus into proximal stomach and mild to moderate delay in flow into gastric sleeve through proximal anastomosis. There is oown-dt-[id number] delay in flow at distal anastomosis from distal sleeve into the pylorus an d duodenal sweep. Patient remains asymptomatic without increased nausea. There is no evidence of cont rast extravasation to suggest leak. Cholecystectomy clips incidentally seen. IMPRESSION: No evidence of leak or significant obstruction status post recent gastric sleeve surgery.
[2021-11-11] MEDS ORDERED: LEVOTHYROXINE 100 MCG TAB PO ONE (09:37)
[2021-11-11 09:38] LABS: Blood Urea Nitrogen 7.6 mg/dL (9.0-27.0); Calcium 8.4 mg/dL (8.7-10.3); Magnesium 2.1 mg/dL (1.5-2.4); Non-African American GFR(CKD) 116.4 (60.0-200.0); Phosphorus 2.8 mg/dL (2.4-5.1); Potassium 4.1 mmol/L (3.5-5.5)
[2021-11-11 11:27] LABS: Glucose,Whole Blood 97 mg/dL (75-99)
--- NOTE | 2021-11-11 11:35 | P.PN ---
Subjective Progress Note Date: 11/11/21 CHIEF COMPLAINT: Morbid obesity HISTORY OF PRESENT ILLNESS: Patient is postop day #1 status post laparoscopic sleeve gastrectomy. Patient's upper GI shows no evidence of leak or obstruction. She will start him. clear liquids. She denies any nausea or vomiting. She complains of some abdominal pain mostly on the right side. She is denies any flatus. She has been up and ambulating. Patient reports feeling very anxious. Her last dose of Xanax was yesterday. She has not received any Xanax today. She usually takes Xanax 0.5 mill grams 3 times a day as well as being on trazodone. Patient reports at this time she does not want be on trazodone since she is not eating solids. However, she is crying and reports feeling very anxious. Afebrile. WBC 9.89 hemoglobin 12.7 platelets 185 sodium 140 potassium 4.1 creatinine 0.6 magnesium 2.1 PHYSICAL EXAM: VITAL SIGNS: Reviewed. GENERAL: Well-developed in no acute distress. HEENT: No sclera icterus. Extraocular movements grossly intact. Moist buccal mucosa. Head is atraumatic, normocephalic. ABDOMEN: Soft. Nondistended. Incision sites clean, dry and intact. Abdominal binder in place NEUROLOGIC: Alert and oriented. Cranial nerves II through XII grossly intact. ASSESSMENT: 1. Morbid obesity status post laparoscopic sleeve gastrectomy 2. Diabetes mellitus 3. Obstructive sleep apnea 4. Hypothyroidism PLAN: -Start bariatric clear liquid diet -Add IV Toradol for pain control -Change Xanax to 0.5 mg 3 times a day scheduled to help with anxiety -Continue IV fluids -Encourage patient to ambulate -Encourage patient to use incentive spirometer -DVT prophylaxis Lovenox and GI prophylaxis Protonix Physician Instructional Media Services Technician note has been reviewed by physician. Signing provider agrees with the documented findings, assessment, and plan of care. I have personally seen and examined the patient, reviewed the ARMATURE WINDER /PAs history, exam and MDM and agree with the assessment and plan as written. Based on total visit time, I have performed more than 50% of the visit. As above: Patient more anxious today. Her nausea and pain are actually less than expected. She has ambulated. Labs noted. Upper GI with slight delay. Begin bariatric liquids. Add Toradol. Increase anxiolytics. Objective - Vital Signs Vital signs: Vital Signs Temp 98.7 F 11/11/21 07:08 Pulse 95 11/11/21 09:33 Resp 18 11/11/21 07:08 BP 133/80 11/11/21 07:08 Pulse Ox 94 L 11/11/21 09:18 Intake & Output 11/10/21 11/11/21 11/11/21 18:59 06:59 18:59 Intake Total 2900 1100 Output Total 20 1450 Balance 2880 -350 Weight 128 kg Intake: IV 1700 Intake, IV Titration 1100 1100 Amount 0.9% NaCl with KCl 20 Meq 900 1000 /l 1,000 ml @ 150 mls/hr IV .Q6H40M [facility] Rx#: [id number] ACETAMINOPHEN IV (For NPO 200 ) 1,000 mg In Empty Bag 1 bag @ 400 mls/hr IVPB Q6HR [facility] Rx#:[id number] ACETAMINOPHEN IV (For NPO 100 ) 1,000 mg In Empty Bag 1 bag @ 400 mls/hr IVPB Q6HR [facility] Rx#:[id number] Oral 100 Output: Urine 1450 Estimated Blood Loss 20 Other: Voiding Method Toilet Toilet # Voids 3 1 - Labs CBC & Chem 7: 11/11/21 05:01 11/11/21 05:01 Labs: Abnormal Lab Results - Last 24 Hours (Table) 11/10/21 11/10/21 11/10/21 Range/Units 12:03 16:16 21:06 RBC (4.10-5.20) X 10*6/uL Immature Gran # (0.00-0.04) X 10*3/uL Eosinophils # (0.04-0.35) X 10*3/uL BUN (9.0-27.0) mg/dL POC Glucose (mg/dL) 174 H 147 H 115 H (75-99) mg/dL Calcium (8.7-10.3) mg/dL 11/11/21 11/11/21 11/11/21 Range/Units 05:01 05:01 06:45 RBC 4.02 L (4.10-5.20) X 10*6/uL Immature Gran # 0.05 H (0.00-0.04) X 10*3/uL Eosinophils # 0.03 L (0.04-0.35) X 10*3/uL BUN 7.6 L (9.0-27.0) mg/dL POC Glucose (mg/dL) 100 H (75-99) mg/dL Calcium 8.4 L (8.7-10.3) mg/dL
[2021-11-11] MEDS: KETOROLAC 15 MG/ML 1 ML VIAL IVP SCH ×3 (11:36→23:14)
[2021-11-11] MEDS: ALPRAZolam 0.5 MG TAB PO SCH ×3 (11:38→23:12)
[2021-11-11] MEDS ORDERED: LORazepam 2 MG/ML INJ IV STA ×2 (11:56)
[2021-11-11] MEDS ORDERED: LORazepam 2 MG/ML INJ IV PRN (12:09)
[2021-11-11 13:15] VITALS: BMI 46.9
--- NOTE | 2021-11-11 13:46 | P.PN ---
Subjective Progress Note Date: 11/11/21 This is a pleasant 36 year old female who is evaluated today post operative Da Mandy assisted laparoscopic sleeve gastrectomy with Dr Vicente. We are asked to see in consultation regarding management for patients chronic conditions including diabetes mellitus, depression, anxiety, bipolar, sleep apnea with CPAP use, hypothyroidism. Patient has a previous history also of laproscopic cholecystectomy and section. Patient is a former smoker quit earlier this year. Current home medications include trazodone, Lamictal, viibryd, Topamax, Imitrex, Wellbutrin, ramelteon, Flexeril, Xanax. She takes metformin once daily, and takes levothyroxine. Preoperative blood count unremarkable, preoperative blood glucose in the 130s, most recent A1c of 7.9 in July of this year. Liver enzymes also elevated preoperatively. Patient is afebrile, heart rate 70 tachycardic 102, blood pressure 140/79, she is 95% on 2L nasal cannula, she does not wear oxygen at home. Tolerated procedure well and is evaluated on the floor. She is anxious to be able to get up and out of bed. 11/11/2021 Patient evaluated today resting bed. She is on CPAP which she uses during the night. Patient is tearful during examination states that she feels that she is going to have another panic attack today. She did get a one-time dose of IV Ativan throughout the evening and is requesting another dose today. We will order a one-time dose of IV Ativan again. Labs today are essentially unremarkable, RBC 4.02, BUN 7.6, creatinine 0.6, blood glucose in the 100s, calcium 8.4. She is afebrile, heart rate 95, blood pressure 142/68, oxygen saturation 94-95%. She has been up ambulating and using the restroom, denies passing gas ever she is burping. Denies abdominal pain. Upper GI series has been completed and she will start a bariatric clear liquid diet today as per primary. Review of Systems Constitutional: Denied any fatigue denied any fever. Reports anxiety/panic Cardio vascular: denied any chest pain, palpitations Gastrointestinal: denied any nausea, vomiting, diarrhea, denies gas, no BM, reports belching Pulmonary: Denied any shortness of breath cough Neurologic denied any new focal deficits All inpatient medications were reviewed and appropriate changes in these medications as dictated in the interval history and assessment and plan. PHYSICAL EXAMINATION: GENERAL: The patient is alert and oriented x3, not in any acute distress. Well developed, well nourished. Patient is tearful during examination. HEENT: Pupils are round and equally reacting to light. EOMI. No scleral icterus. No conjunctival pallor. Normocephalic, atraumatic. No pharyngeal erythema. No thyromegaly. CARDIOVASCULAR: S1 and S2 present. No murmurs, rubs, or gallops. PULMONARY: Chest is clear to auscultation, no wheezing or crackles. ABDOMEN: Soft, nontender, nondistended, normoactive bowel sounds. No palpable organomegaly. Post surgical abdomen. MUSCULOSKELETAL: No joint swelling or deformity. EXTREMITIES: No cyanosis, clubbing, or pedal edema. NEUROLOGICAL: Gross neurological examination did not reveal any focal deficits. SKIN: No rashes. Assessment and Plan Assessment Morbid obesity post operative laproscopic sleeve gastrectomy Diabetes Mellitus type 2, blood sugars improved Sleep apnea with CPAP use Hypothyroidism Anxiety / Depression / Bipolar / Panic Disorder History of migraines Former tobacco use Obesity GI Prophylaxis DVT Prophylaxis as per primary Full Code Plan Advanced to bariatric clear diet per primary Continue to hold metformin Novolog s/s for blood glucose coverage, accuchecks ACHS IV ativan x 1 today, xanax TID Encourage IS Encourage ambulation Thank you kindly for this consultation. The impression and plan of care has been dictated by Kely Goetz, Nurse Practitioner as directed. Dr. Katerin MD I have performed a history and physical examination and medical decision making of this patient, discussed the same with the dictator, and agree with the dictators assessment and plan as written, documented as a scribe. Based on total visit time, I have performed more than 50% of this visit. Objective - Vital Signs Vital signs: Vital Signs Temp 98.7 F 11/11/21 07:08 Pulse 95 11/11/21 09:33 Resp 18 11/11/21 07:08 BP 133/80 11/11/21 07:08 Pulse Ox 94 L 11/11/21 09:18 Intake & Output 11/10/21 11/11/21 11/11/21 18:59 06:59 18:59 Intake Total 2900 1100 Output Total 20 1450 Balance 2880 -350 Weight 128 kg Intake: IV 1700 Intake, IV Titration 1100 1100 Amount 0.9% NaCl with KCl 20 Meq 900 1000 /l 1,000 ml @ 150 mls/hr IV .Q6H40M [facility] Rx#: [id number] ACETAMINOPHEN IV (For NPO 200 ) 1,000 mg In Empty Bag 1 bag @ 400 mls/hr IVPB Q6HR [facility] Rx#:[id number] ACETAMINOPHEN IV (For NPO 100 ) 1,000 mg In Empty Bag 1 bag @ 400 mls/hr IVPB Q6HR [facility] Rx#:[id number] Oral 100 Output: Urine 1450 Estimated Blood Loss 20 Other: Voiding Method Toilet Toilet # Voids 3 1 - Labs CBC & Chem 7: 11/11/21 05:01 11/11/21 05:01 Labs: Abnormal Lab Results - Last 24 Hours (Table) 11/10/21 11/10/21 11/10/21 Range/Units 12:03 16:16 21:06 RBC (4.10-5.20) X 10*6/uL Immature Gran # (0.00-0.04) X 10*3/uL Eosinophils # (0.04-0.35) X 10*3/uL BUN (9.0-27.0) mg/dL POC Glucose (mg/dL) 174 H 147 H 115 H (75-99) mg/dL Calcium (8.7-10.3) mg/dL 11/11/21 11/11/21 11/11/21 Range/Units 05:01 05:01 06:45 RBC 4.02 L (4.10-5.20) X 10*6/uL Immature Gran # 0.05 H (0.00-0.04) X 10*3/uL Eosinophils # 0.03 L (0.04-0.35) X 10*3/uL BUN 7.6 L (9.0-27.0) mg/dL POC Glucose (mg/dL) 100 H (75-99) mg/dL Calcium 8.4 L (8.7-10.3) mg/dL Assessment and Plan Time with Patient: Less than 30
[2021-11-11] MEDS ORDERED: ALBUTEROL NEBULIZED 2.5 MG/3 ML INHALATION PRN (15:41)
[2021-11-11 16:27] LABS: Glucose,Whole Blood 88 mg/dL (75-99)
[2021-11-11 20:04] LABS: Glucose,Whole Blood 87 mg/dL (75-99)
[2021-11-12] MEDS: LEVOTHYROXINE 100 MCG TAB PO SCH (06:18)
[2021-11-12] MEDS: KETOROLAC 15 MG/ML 1 ML VIAL IVP SCH (06:18)
[2021-11-12] MEDS: ACETAMINOPHEN IV (For NPO) 1,000 MG in EMPTY BAG 1 BAG IVPB SCH (06:18)
[2021-11-12] MEDS: 0.9% NACL WITH KCL 20 MEQ/L 1,000 ML IV SCH (06:22)
[2021-11-12] MEDS: LACTATED RINGERS 1,000 ML IV SCH (06:22)
[2021-11-12 06:48] LABS: Glucose,Whole Blood 106 mg/dL (75-99)
[2021-11-12 07:46] VITALS: TEMP 98.4
[2021-11-12] MEDS: INSULIN ASPART (NovoLOG) 100 UNIT/ML VIAL SQ SCH (07:52)
[2021-11-12] MEDS ORDERED: bisacodyL 5 MG TABLET.DR PO PRN (08:00)
[2021-11-12] MEDS: PANTOPRAZOLE 40 MG/10 ML VIAL IV SCH (09:12)
[2021-11-12] MEDS: ENOXAPARIN 30 MG/0.3 ML SYRINGE SQ SCH (09:12)
[2021-11-12] MEDS: TOPIRAMATE 25 MG TAB PO SCH (09:12)
[2021-11-12] MEDS: ALPRAZolam 0.5 MG TAB PO SCH (09:12)
[2021-11-12] MEDS: buPROPion SR 150 MG TABLET.ER PO SCH (09:12)
[2021-11-12] MEDS: ONDANSETRON 4 MG/2 ML VIAL IVP PRN (09:21)
[2021-11-12] MEDS: lamoTRIgine 25 MG TAB PO SCH (10:23)
--- NOTE | 2021-11-12 11:16 | P.DS ---
Providers Date of admission: 11/10/21 06:21 Expected date of discharge: 11/12/21 Attending physician: Bryan Vicente Consults: 11/10/21 10:14 Consult Physician Routine Consulting Provider: Jermain Blanco Consult Reason/Comments: Medical management Do you want consulting provider notified?: Yes Primary care physician: Sabrina Vicente Hospital Course: Discharge diagnosis 1. Morbid obesity status post laparoscopic sleeve gastrectomy 2. Diabetes mellitus 3. Obstructive sleep apnea 4. Hypothyroidism 5. Anxiety Hospital course This is a 36-year-old female known history of morbid obesity. She is status post laparoscopic Sleeve gastrectomy. Her upper GI did show a slight delay. She is tolerating diet. Denies any nausea or vomiting. Her pain is controlled. She is having flatus. She has been up and ambulating. She is afebrile. She is stable for discharge. Please refer to chart for any further details. Physician Pattern Filer note has been reviewed by physician. Signing provider agrees with the documented findings, assessment, and plan of care. I have personally seen and examined the patient, reviewed the TREASURY AGENT /PAs history, exam and MDM and agree with the assessment and plan as written. Based on total visit time, I have performed more than 50% of the visit. As above: Patient doing well today. Anxiety is improved. She is tolerating her liquid volume. Denies pain. November discharge. Follow-up nursing visit on Wednesday. Patient Condition at Discharge: Stable Plan - Discharge Summary Discharge Rx Participant: No New Discharge Prescriptions: New bisacodyL [Dulcolax] 5 mg PO DAILY PRN #10 tab PRN Reason: Constipation Ondansetron Odt [Zofran Odt] 4 mg PO Q8HR PRN #9 tab PRN Reason: Nausea Simethicone 40 mg/0.6 ml Drops [Mylicon Drops] 40 mg PO PCHS PRN #30 ml PRN Reason: Gas Omeprazole [PriLOSEC] 40 mg PO DAILY #30 cap Continue Levothyroxine Sodium [Synthroid] 100 mcg PO DAILY ALPRAZolam [Xanax] 0.5 mg PO Q8HR PRN PRN Reason: Anxiety traZODone HCL [Desyrel] 200 mg PO HS lamoTRIgine [lamoTRIgine ER] 50 mg PO HS SUMAtriptan SUCCINATE [Imitrex] 25 mg PO DIRECTED PRN PRN Reason: Migraine Headache Ramelteon 8 mg PO HS buPROPion SR [Wellbutrin SR] 150 mg PO DAILY Vilazodone HCl [Viibryd] 40 mg PO HS Brendan/D3/Mag11/Zinc/Addiction Psychiatrist/Richy/Bor [Caltrate 600+D Plus Tablet] 1 each PO DAILY Topiramate 50 mg PO DAILY metFORMIN HCL [metFORMIN HCL ER] 1,000 mg PO AC-SUPPER Cyclobenzaprine [Flexeril] 10 mg PO HS Discontinued Ondansetron Odt [Zofran Odt] 4 - 8 mg PO DIRECTED PRN PRN Reason: Nausea Ibuprofen [Motrin] 800 mg PO DIRECTED PRN PRN Reason: Pain Discharge Medication List ALPRAZolam [Xanax] 0.5 mg PO Q8HR PRN 11/03/14 [History] Levothyroxine Sodium [Synthroid] 100 mcg PO DAILY 11/03/14 [History] traZODone HCL [Desyrel] 200 mg PO HS 12/13/18 [History] Ramelteon 8 mg PO HS 07/31/21 [History] SUMAtriptan SUCCINATE [Imitrex] 25 mg PO DIRECTED PRN 07/31/21 [History] Topiramate 50 mg PO DAILY 07/31/21 [History] lamoTRIgine [lamoTRIgine ER] 50 mg PO HS 07/31/21 [History] Brendan/D3/Mag11/Zinc/Addiction Psychiatrist/Richy/Bor [Caltrate 600+D Plus Tablet] 1 each PO DAILY 08/29/21 [History] Cyclobenzaprine [Flexeril] 10 mg PO HS 08/29/21 [History] Vilazodone HCl [Viibryd] 40 mg PO HS 08/29/21 [History] buPROPion SR [Wellbutrin SR] 150 mg PO DAILY 08/29/21 [History] metFORMIN HCL [metFORMIN HCL ER] 1,000 mg PO AC-SUPPER 08/29/21 [History] Omeprazole [PriLOSEC] 40 mg PO DAILY #30 cap 11/12/21 [Rx] Ondansetron Odt [Zofran Odt] 4 mg PO Q8HR PRN #9 tab 11/12/21 [Rx] Simethicone 40 mg/0.6 ml Drops [Mylicon Drops] 40 mg PO HS PRN #30 ml 11/12/21 [Rx] bisacodyL [Dulcolax] 5 mg PO DAILY PRN #10 tab 11/12/21 [Rx] [facility] [place] [facility] Patient Instructions/Handouts: *Surgery [facility] - Scopalamine Patch Instructions Activity/Diet/Wound Care/Special Instructions: No lifting over 10 pounds You may shower. No soaking or tub baths for 2 weeks Very light activity until you are reevaluated at your follow up appointment with your surgeon No straws or carbonated beverages Okay to take Tylenol over the counter as needed for pain Discharge Disposition: HOME SELF-CARE
[2021-11-12 11:28] LABS: Glucose,Whole Blood 99 mg/dL (75-99)
--- NOTE | 2021-11-12 12:10 | P.PN ---
Subjective Progress Note Date: 11/12/21 This is a pleasant 36 year old female who is evaluated today post operative Da Mandy assisted laparoscopic sleeve gastrectomy with Dr Vicente. We are asked to see in consultation regarding management for patients chronic conditions including diabetes mellitus, depression, anxiety, bipolar, sleep apnea with CPAP use, hypothyroidism. Patient has a previous history also of laproscopic cholecystectomy and section. Patient is a former smoker quit earlier this year. Current home medications include trazodone, Lamictal, viibryd, Topamax, Imitrex, Wellbutrin, ramelteon, Flexeril, Xanax. She takes metformin once daily, and takes levothyroxine. Preoperative blood count unremarkable, preoperative blood glucose in the 130s, most recent A1c of 7.9 in July of this year. Liver enzymes also elevated preoperatively. Patient is afebrile, heart rate 70 tachycardic 102, blood pressure 140/79, she is 95% on 2L nasal cannula, she does not wear oxygen at home. Tolerated procedure well and is evaluated on the floor. She is anxious to be able to get up and out of bed. 11/11/2021 Patient evaluated today resting bed. She is on CPAP which she uses during the night. Patient is tearful during examination states that she feels that she is going to have another panic attack today. She did get a one-time dose of IV Ativan throughout the evening and is requesting another dose today. We will order a one-time dose of IV Ativan again. Labs today are essentially unremarkable, RBC 4.02, BUN 7.6, creatinine 0.6, blood glucose in the 100s, calcium 8.4. She is afebrile, heart rate 95, blood pressure 142/68, oxygen saturation 94-95%. She has been up ambulating and using the restroom, denies passing gas ever she is burping. Denies abdominal pain. Upper GI series has been completed and she will start a bariatric clear liquid diet today as per primary. 11/12/2021 Patient is seen in follow-up today and reports that she is being discharged today. Patient denies any further separate episodes of increased anxiety and does take medications for this in the outpatient setting. Appropriate home medications have been resumed. Patient is tolerating diet and reports passing gas. Patient has been up and walking and encourage the patient to continue increasing activity as tolerated. Incentive spirometer at the bedside and encourage the patient to continue using even at home at least 10 times every hour while awake. Patient encouraged to follow-up with primary care provider along with general surgeon in the outpatient setting on discharge. Review of Systems Constitutional: Denied any fatigue denied any fever. Reports feeling less anxious in anticipating going home Cardiovascular: denied any chest pain, palpitations Gastrointestinal: denied any nausea, vomiting, diarrhea, reports passing gas, no BM, reports belching Pulmonary: Denied any shortness of breath cough Neurologic denied any new focal deficits All inpatient medications were reviewed and appropriate changes in these me dications as dictated in the interval history and assessment and plan. PHYSICAL EXAMINATION: GENERAL: The patient is alert and oriented x3. Morbidly obese. Well developed, well nourished. HEENT: Pupils are round and equally reacting to light. EOMI. No scleral icterus. No conjunctival pallor. Normocephalic, atraumatic. No pharyngeal erythema. No thyromegaly. Some facial swelling noted status post CPAP mask CARDIOVASCULAR: S1 and S2 muffled PULMONARY: Diminished breath sounds bilaterally, no wheezing or crackles. ABDOMEN: Soft, obese. nontender, nondistended, normoactive bowel sounds. No palpable organomegaly. Post surgical abdomen. MUSCULOSKELETAL: No joint swelling or deformity. EXTREMITIES: No cyanosis, clubbing, or pedal edema. NEUROLOGICAL: Gross neurological examination did not reveal any focal deficits. SKIN: No rashes. Assessment: Morbid obesity post operative laproscopic sleeve gastrectomy Diabetes Mellitus type 2, blood sugars improved Sleep apnea with CPAP use Hypothyroidism Anxiety / Depression / Bipolar / Panic Disorder History of migraines Former tobacco use Obesity GI Prophylaxis DVT Prophylaxis as per primary Full Code Plan Recommend continue with bariatric clear diet per surgical recommendations and advance further guidelines Okay to resume oral diabetic agents when returning home Encourage the patient to continue using incentive spirometer at least 10 times every hour while awake even in home Encouraged increased activity as tolerated Recommend following up with primary care provider on discharge Thank you kindly for this consultation. We will continue to follow during hospitalization. Patient anticipates being discharged today. The impression and plan of care has been dictated by Luz Beck, Nurse Practitioner as directed. Dr. Francis MD I have performed a history and examination and MDM of this patient, discussed the same with the dictator, and agree with the dictator's assessment and plan as written ,documented as a scribe. Based on total visit time, I have performed more than 50% of the visit. Objective - Vital Signs Vital signs: Vital Signs Temp 98.4 F 11/12/21 06:56 Pulse 92 11/12/21 06:56 Resp 17 11/12/21 06:56 BP 142/92 11/12/21 06:56 Pulse Ox 95 11/12/21 06:56 Intake & Output 11/11/21 11/12/21 11/12/21 18:59 06:59 18:59 Intake Total 1200 Output Total 200 800 Balance -200 1200 -800 Weight 128 kg Intake: Intake, IV Titration 1200 Amount 0.9% NaCl with KCl 20 Meq 1000 /l 1,000 ml @ 100 mls/hr IV .Q10H [facility] Rx#: [id number] ACETAMINOPHEN IV (For NPO 200 ) 1,000 mg In Empty Bag 1 bag @ 400 mls/hr IVPB Q6HR LILLY Rx#:[id number] Output: Urine 200 800 Other: Voiding Method Toilet - Labs CBC & Chem 7: 11/11/21 05:01 11/11/21 05:01 Labs: Abnormal Lab Results - Last 24 Hours (Table) 11/11/21 11/12/21 Range/Units 05:01 06:46 BUN 7.6 L (9.0-27.0) mg/dL POC Glucose (mg/dL) 106 H (75-99) mg/dL Calcium 8.4 L (8.7-10.3) mg/dL
[2021-11-12 12:24] VITALS: BP 146/94; PULSE 104; RESP 18
== END 2021-11-12 12:37 | disposition home or self-care (01) | DRG 621 ==
LOC: 2ORMAIN 06:21 → EDSTATUS 07:45 → 4SSUR 10:23
PROVIDERS: ADMIT Surgery; ATTEND Surgery
PROC: 0DB64Z3 Excision of Stomach, Percutaneous Endoscopic Approach, Vertical (ICD-10-PCS; principal; 2021-11-10 07:45)
PROC: 8E0W4CZ Robotic Assisted Procedure of Trunk Region, Percutaneous Endoscopic Approach (ICD-10-PCS; principal; 2021-11-10 07:45)
DX: E66.01 Morbid (severe) obesity due to excess calories (principal); E03.9 Hypothyroidism, unspecified; Z68.42 Body mass index [BMI] 45.0-49.9, adult; F31.9 Bipolar disorder, unspecified; E11.65 Type 2 diabetes mellitus with hyperglycemia; G47.33 Obstructive sleep apnea (adult) (pediatric); F41.0 Panic disorder [episodic paroxysmal anxiety]; L81.6 Other disorders of diminished melanin formation; Z79.890 Hormone replacement therapy; Z79.899 Other long term (current) drug therapy; Z98.891 History of uterine scar from previous surgery; Z90.49 Acquired absence of other specified parts of digestive tract; Z87.19 Personal history of other diseases of the digestive system; Z87.891 Personal history of nicotine dependence; Z86.69 Personal history of other diseases of the nervous system and sense organs; Z98.890 Other specified postprocedural states; Z71.3 Dietary counseling and surveillance
CPT/HCPCS: 74240; 80051; 82310; 82565; 83735; 84100; 84520; 84703; 85025; 86850; 86900; 86901; 88307; 94640

== ENCOUNTER → 2021-11-14 | Outpatient (CLI) | payer MEDICARE, OTHER ==
[2021-11-14 11:21] VITALS: BP 140/89; PULSE 99; TEMP 97.8; BMI 46.3
== END | disposition home or self-care (01) ==
LOC: BARWHC3 10:22
PROVIDERS: ATTEND Surgery
DX: Z53.9 Procedure and treatment not carried out, unspecified reason (principal)
CPT/HCPCS: 99211

== ENCOUNTER → 2021-11-20 | Outpatient (CLI) | payer MEDICARE, OTHER ==
[2021-11-20 13:16] VITALS: BP 137/91; PULSE 120; RESP 16; TEMP 97.6; BMI 44.4
--- NOTE | 2021-11-20 13:33 | P.BASOAP ---
Subjective Progress Note Date: 11/20/21 Principal diagnosis: Morbid obesity Patient returns after sleeve gastrectomy last week. Doing well at this time. Denies pain. Drinking approximately 100 ounces of liquids per day and getting in about 100 g of protein daily. Denies heartburn. Some infrequent stools. Anxiety has been improved overall. Her heart rate today was 121 recheck is 114. Patient says she believes it is because of anxiety. During a previous visit she was 102. Objective - Vital Signs Vital signs: Vital Signs Temp 97.6 F 11/20/21 13:09 Pulse 120 H 11/20/21 13:09 Resp 16 11/20/21 13:09 BP 137/91 11/20/21 13:09 Pulse Ox Intake & Output 11/19/21 11/20/21 11/20/21 18:59 06:59 18:59 Weight 121.109 kg - Exam Abdomen: Soft, nondistended, nontender, incisions clean and dry Assessment/Plan (1) Morbid obesity with BMI of 45.0-49.9, adult Narrative/Plan: 36-year-old female doing well after recent sleeve gastrectomy. Continue liquid diet. Gradually resume normal activities. Continue antiacid therapy for now. Monitor for any symptoms of tachycardia. Monitor for any abdominal discomfort. Return visit 3 weeks. Plan: Date: 11/20/21 Initial Weight: 130.805 kg Initial BMI: 47.9 Current Weight: 121.109 kg Current BMI: 44.4 Type of Surgery: Total Volume in Band: Previous Volume: Volume Removed: Volume Added: Band Size:
== END | disposition home or self-care (01) ==
LOC: BARWHC3 12:59
PROVIDERS: ATTEND Surgery
DX: E66.01 Morbid (severe) obesity due to excess calories (principal); Z68.42 Body mass index [BMI] 45.0-49.9, adult
CPT/HCPCS: 99211

== ENCOUNTER → 2021-12-16 | Outpatient (CLI) | payer MEDICARE, OTHER ==
[2021-12-16 14:13] VITALS: BP 137/91; PULSE 88; RESP 16; TEMP 97.2; BMI 42.7
--- NOTE | 2021-12-16 14:32 | P.BASOAP ---
Subjective Progress Note Date: 12/16/21 Principal diagnosis: Morbid obesity Patient returns for reevaluation. Last seen 3-4 weeks ago. Doing well since her last visit. Improved energy. Still doing well with her liquid and protein intake. Some heartburn after her prescription for omeprazole . Heart rate is normal today. Anxiety unfortunately persisting. Objective - Vital Signs Vital signs: Vital Signs Temp 97.2 F L 12/16/21 14:10 Pulse 88 12/16/21 14:10 Resp 16 12/16/21 14:10 BP 137/91 12/16/21 14:10 Pulse Ox FiO2 Intake & Output 12/15/21 12/16/21 12/16/21 18:59 06:59 18:59 Weight 116.573 kg - Exam Abdomen: Soft, nondistended, nontender, incisions clean and dry Assessment/Plan (1) Morbid obesity with BMI of 45.0-49.9, adult Narrative/Plan: patient patient doing well today. Continue dietary and exercise regimen. Continue antiacids. We'll provide refill. Check one month labs. Recheck one m josselyn. Plan: Date: 12/16/21 Initial Weight: 130.805 kg Initial BMI: 47.9 Current Weight: 116.573 kg Current BMI: 42.7 Type of Surgery: Vertical Sleeve Gastrectomy Total Volume in Band: Previous Volume: Volume Removed: Volume Added: Band Size:
== END ==
LOC: BARWHC3 13:32
PROVIDERS: ATTEND Surgery
DX: E66.01 Morbid (severe) obesity due to excess calories (principal); Z68.42 Body mass index [BMI] 45.0-49.9, adult
CPT/HCPCS: 97803; G0463; 99211

== ENCOUNTER → 2021-12-17 | Outpatient (CLI) | payer MEDICARE, OTHER ==
[2021-12-17 22:26] LABS: HCT 44.9 % (37.2-46.3); HGB 15.4 g/dL (12.0-15.0); MCH 30.8 pg (27.0-32.0); MCHC 34.3 g/dL (32.0-37.0); MCV 89.8 fL (80.0-97.0); Mean Platelet Volume 9.6 fL (9.5-12.2); NRBC Per 100 WBC 0 /100 WBCS (0.0-0.0); Platelet Count 242 X 10*3/uL (140-440); RDW 12.6 % (11.5-14.5); WBC 9.15 X 10*3/uL (4.50-10.00)
[2021-12-17 23:54] LABS: African American GFR (CKD) 115.8 (60.0-200.0); Albumin 4.3 g/dL (3.8-4.9); Albumin/Globulin Ratio 1.54 (1.60-3.17); Anion Gap 12.9 mmol/L (10.00-18.00); BUN/Creat Ratio 18.77 Ratio (12.00-20.00); Blood Urea Nitrogen 14.3 mg/dL (9.0-27.0); Calcium 9.5 mg/dL (8.7-10.3); Carbon Dioxide 21.4 mmol/L (20.0-27.5); Globulin 2.8 g/dL (1.6-3.3); Non-African American GFR(CKD) 99.9 (60.0-200.0); Potassium 3.8 mmol/L (3.5-5.5); Total Bilirubin 0.3 mg/dL (0.30-1.20)
== END | disposition home or self-care (01) ==
LOC: LABWHC1 13:12
PROVIDERS: ATTEND Surgery
DX: E66.01 Morbid (severe) obesity due to excess calories (principal); K90.89 Other intestinal malabsorption; E55.9 Vitamin D deficiency, unspecified
CPT/HCPCS: 36415; 80053; 82306; 82607; 82746; 83540; 84425; 85027

== ENCOUNTER → 2022-01-13 | Outpatient (CLI) | payer MEDICARE, OTHER ==
[2022-01-13 13:44] VITALS: BP 104/73; PULSE 62; RESP 16; TEMP 97.9; BMI 40.4
--- NOTE | 2022-01-13 14:00 | P.BASOAP ---
Subjective Progress Note Date: 01/13/22 Principal diagnosis: Morbid obesity Patient doing well today. Returns after her most recent visit 12/16. She is 2 months post sleeve gastrectomy. Denies heartburn. No vomiting. She does have frequent almost daily nausea but says this is similar to what she was experiencing prior to her surgery. She takes Zofran as needed for that. That seems to control her symptoms well. Denies pain. Or 2 pound weight loss since last visit. Had labs checked last visit which were normal. Objective - Vital Signs Vital signs: Vital Signs Temp 97.9 F 01/13/22 13:42 Pulse 62 01/13/22 13:42 Resp 16 01/13/22 13:42 BP 104/73 01/13/22 13:42 Pulse Ox FiO2 Intake & Output 01/12/22 01/13/22 01/13/22 18:59 06:59 18:59 Weight 110.223 kg - Exam Abdomen: Soft, nontender, nondistended Assessment/Plan (1) Morbid obesity with BMI of 45.0-49.9, adult Narrative/Plan: Patient doing well 2 months post sleeve gastrectomy. Continue as needed Zofran. Continue omeprazole daily. Follow-up 4-6 weeks. We'll check three-month labs at that time. Plan: Date: 01/13/22 Initial Weight: 130.805 kg Initial BMI: 47.9 Current Weight: 110.223 kg Current BMI: 40.4 Type of Surgery: Vertical Sleeve Gastrectomy Total Volume in Band: Previous Volume: Volume Removed: Volume Added: Band Size:
== END ==
LOC: BARWHC3 12:46
PROVIDERS: ATTEND Surgery
DX: E66.01 Morbid (severe) obesity due to excess calories (principal); Z98.84 Bariatric surgery status; Z68.41 Body mass index [BMI] 40.0-44.9, adult; F17.200 Nicotine dependence, unspecified, uncomplicated
CPT/HCPCS: 99211

== ENCOUNTER → 2022-04-14 | Outpatient (CLI) | payer MEDICARE, OTHER ==
[2022-04-14 12:59] VITALS: BP 104/72; PULSE 58; RESP 16; TEMP 97.6; BMI 34.6
--- NOTE | 2022-04-14 13:23 | P.BASOAP ---
Subjective Progress Note Date: 04/14/22 Principal diagnosis: Morbid obesity Patient returns for recheck. She was last seen 6 weeks ago. Doing well. She decreased her omeprazole to once daily and has had stable control of her heartburn symptoms. Still having leg soreness. Chronic intermittent nausea persists just like preop. She sees her MS specialist at [facility] later this month. She will discuss her leg discomfort with them. She has had excellent weight loss since her last visit. Objective - Vital Signs Vital signs: Vital Signs Temp 97.6 F 04/14/22 12:57 Pulse 58 L 04/14/22 12:57 Resp 16 04/14/22 12:57 BP 104/72 04/14/22 12:57 Pulse Ox FiO2 Intake & Output 04/13/22 04/14/22 04/14/22 18:59 06:59 18:59 Weight 94.347 kg - Exam Abdomen: Soft, nontender, nondistended Assessment/Plan (1) Morbid obesity with BMI of 45.0-49.9, adult Narrative/Plan: Patient doing well at this time. Continue dietary and exercise regimen. Await appointment at [facility] for MS specialist. Continue daily antiacids. Check 6 month labs next visit. Plan: Date: 04/14/22 Initial Weight: 130.805 kg Initial BMI: 47.9 Current Weight: 94.347 kg Current BMI: 34.6 Type of Surgery: Vertical Sleeve Gastrectomy Total Volume in Band: Previous Volume: Volume Removed: Volume Added: Band Size:
== END | disposition home or self-care (01) ==
LOC: BARWHC3 12:50
PROVIDERS: ATTEND Surgery
DX: E66.01 Morbid (severe) obesity due to excess calories (principal); Z68.34 Body mass index [BMI] 34.0-34.9, adult
CPT/HCPCS: 99211

== ENCOUNTER → 2022-06-02 | Outpatient (CLI) | payer MEDICARE, OTHER ==
[2022-06-02 13:07] VITALS: BP 126/80; PULSE 87; RESP 16; TEMP 97.7; BMI 32.9
--- NOTE | 2022-06-02 13:23 | P.BASOAP ---
Subjective Progress Note Date: 06/02/22 Principal diagnosis: Morbid obesity Patient returns for recheck. She was last seen 6 weeks ago. Patient recently found out she was . She is due 01/19. She was seen by neurology at [facility]. Now has an appointment to see neuro at [place]. Her symptoms however have improved. No leg pain for the last month or so. Minimal headaches during that time. She is now off of her PPIs. No GERD symptoms. Chronic nausea unchanged. She is due for 6 month labs. Objective - Vital Signs Vital signs: Vital Signs Temp 97.7 F 06/02/22 13:03 Pulse 87 06/02/22 13:03 Resp 16 06/02/22 13:03 BP 126/80 06/02/22 13:03 Pulse Ox FiO2 Intake & Output 06/01/22 06/02/22 06/02/22 18:59 06:59 18:59 Weight 89.811 kg - Exam Physical exam: General: Well-developed, well-nourished HEENT: Normocephalic, sclerae nonicteric Abdomen: Nontender, nondistended Extremities: No edema Neuro: Alert and oriented Assessment/Plan (1) Morbid obesity with BMI of 45.0-49.9, adult Narrative/Plan: Patient doing well at this time. Discussed significance of recent with patient. Check 6 month labs. Hold on proton pump inhibitors. May use H2 blockers when necessary if needed. Plan recheck in 2 months. Will be seen by dietary today. Plan: Date: 06/02/22 Initial Weight: 130.805 kg Initial BMI: 47.9 Current Weight: 89.811 kg Current BMI: 32.9 Type of Surgery: Total Volume in Band: Previous Volume: Volume Removed: Volume Added: Band Size:
[2022-06-02 19:04] LABS: African American GFR (CKD) 130.8 (60.0-200.0); Albumin 4.1 g/dL (3.8-4.9); Albumin/Globulin Ratio 1.36 (1.60-3.17); Anion Gap 10.9 mmol/L (10.00-18.00); BUN/Creat Ratio 23.37 Ratio (12.00-20.00); Blood Urea Nitrogen 15.1 mg/dL (9.0-27.0); Carbon Dioxide 22.6 mmol/L (20.0-27.5); Non-African American GFR(CKD) 112.9 (60.0-200.0); Potassium 4.7 mmol/L (3.5-5.5); Total Bilirubin 0.3 mg/dL (0.30-1.20)
[2022-06-02 23:50] LABS: HCT 45.4 % (37.2-46.3); MCH 32.5 pg (27.0-32.0); MCHC 35.2 g/dL (32.0-37.0); MCV 92.1 fL (80.0-97.0); Mean Platelet Volume 10.2 fL (9.5-12.2); NRBC Per 100 WBC 0 /100 WBCS (0.0-0.0); Platelet Count 288 X 10*3/uL (140-440); RBC 4.93 X 10*6/uL (4.10-5.20); RDW 12.8 % (11.5-14.5); WBC 12.13 X 10*3/uL (4.50-10.00)
== END ==
LOC: BARWHC3 12:51
PROVIDERS: ATTEND Surgery
DX: Z71.3 Dietary counseling and surveillance (principal); E66.01 Morbid (severe) obesity due to excess calories; K90.89 Other intestinal malabsorption; E55.9 Vitamin D deficiency, unspecified; F17.200 Nicotine dependence, unspecified, uncomplicated; Z68.32 Body mass index [BMI] 32.0-32.9, adult
CPT/HCPCS: 84425; 80053; 82607; 82746; 83540; 85027; 82306; 97803; G0463; 99211

== ENCOUNTER → 2022-06-25 | Outpatient (CLI) | payer MEDICARE, OTHER | END | disposition home or self-care (01) | LOC: LABWHC1 13:08 | PROVIDERS: ATTEND Obstetrics & Gynecology | DX: Z01.812 Encounter for preprocedural laboratory examination (principal); Z20.822 Contact with and (suspected) exposure to COVID-19 ==

== ENCOUNTER 2022-10-24 19:43 | Emergency (ER) | payer MEDICARE ==
--- NOTE | 2022-10-24 20:14 | ED ---
Female Urogenital HPI - General Chief complaint: Abdominal Pain Stated complaint: POSSIBLE MISSCARRIAGE-8WEEKS Time Seen by Provider: 10/24/22 20:06 Source: patient, RN notes reviewed, old records reviewed Mode of arrival: ambulatory Limitations: no limitations - History of Present Illness Initial comments: This is a 29-year-old female to the emergency department for evaluation. Patient presents today for abdominal cramping high-risk if she has a prior miscarriage of PCO S with minimal vaginal bleeding. Patient does not feel lightheaded dizzy or weak. Patient does have prior positive with recent miscarriage MD Complaint: vaginal bleeding -: hour(s) Location: perineum, suprapubic (Cramping) Severity: mild Severity scale (1-10): 1 Quality: cramping Consistency: constant Improves with: none Last Menstrual Period: 08/26/22 Patient : Yes - Related Data Sexually active: No Home Medications Medication Instructions Recorded Confirmed ALPRAZolam [Xanax] 0.5 mg PO Q8HR PRN 11/03/14 08/18/22 Levothyroxine Sodium [Synthroid] 100 mcg PO DAILY 11/03/14 08/18/22 traZODone HCL [Desyrel] 200 mg PO HS 12/13/18 08/18/22 Ramelteon 8 mg PO HS 07/31/21 08/18/22 Cyclobenzaprine [Flexeril] 10 mg PO HS 08/29/21 08/18/22 buPROPion SR [Wellbutrin SR] 150 mg PO DAILY 08/29/21 08/18/22 lamoTRIgine [LaMICtal] 25 mg PO DAILY 11/21/21 08/18/22 Citalopram Hydrobromide [CeleXA] 30 mg PO DAILY 01/13/22 08/18/22 Previous Rx's Medication Instructions Recorded Omeprazole [PriLOSEC] 40 mg PO AC-BID #120 cap 03/03/22 Allergies Allergy/AdvReac Type Severity Reaction Status Date / Time No Known Allergies Allergy Verified 10/24/22 19:56 Review of Systems ROS Statement: Those systems with pertinent positive or pertinent negative responses have been documented in the HPI. ROS Other: All systems not noted in ROS Statement are negative. Past Medical History Past Medical History: Diabetes Mellitus, Sleep Apnea/CPAP/BIPAP, Thyroid Disorder Additional Past Medical History / Comment(s): Uses CPAP, tinea versicolor-fungus on back , chest & neck., migraines. History of Any Multi-Drug Resistant Organisms: None Reported Past Surgical History: Bariatric Surgery, Section, Cholecystectomy Additional Past Surgical History / Comment(s): gastric sleeve 11/10/21 Past Anesthesia/Blood Transfusion Reactions: Postoperative Nausea & Vomiting (PONV) Additional Past Anesthesia/Blood Transfusion Reaction / Comment(s): Mother=ponv Past Psychological History: Anxiety, Bipolar, Depression, Panic Disorder Smoking Status: Vaper, Former smoker Past Alcohol Use History: None Reported Past Drug Use History: None Reported - Past Family History Mother Family Medical History: No Reported History General Exam Limitations: no limitations General appearance: alert, in no apparent distress Head exam: Present: atraumatic, normocephalic, normal inspection Eye exam: Present: normal appearance, PERRL, EOMI. Absent: scleral icterus, conjunctival injection, periorbital swelling ENT exam: Present: normal exam, mucous membranes moist Neck exam: Present: normal inspection. Absent: tenderness, meningismus, lymphadenopathy Respiratory exam: Present: normal lung sounds bilaterally. Absent: respiratory distress, wheezes, rales, rhonchi, stridor Cardiovascular Exam: Present: regular rate, normal rhythm, normal heart sounds. Absent: systolic murmur, diastolic murmur, rubs, gallop, clicks GI/Abdominal exam: Present: soft, normal bowel sounds. Absent: distended, tenderness, guarding, rebound, rigid Extremities exam: Present: normal inspection, full ROM, normal capillary refill. Absent: tenderness, pedal edema, joint swelling, calf tenderness Back exam: Present: normal inspection Neurological exam: Present: alert, oriented X3, CN II-XII intact Psychiatric exam: Present: normal affect, normal mood Skin exam: Present: warm, dry, intact, normal color. Absent: rash Course Vital Signs 10/24/22 19:53 Temperature 97.9 F Pulse Rate 115 H Respiratory 20 Rate Blood Pressure 147/65 O2 Sat by Pulse 98 Oximetry - Reevaluation(s) Reevaluation #1: 10/24/22 22:26 Medical records reviewed Reevaluation #2: 10/24/22 22:26 Patient has no significant hemorrhage here in the ER Reevaluation #3: 10/24/22 22:26 Patient informed results and questions answered Reevaluation #4: 10/24/22 22:26 Was pt. sent in by a medical professional or institution? @ -no Did you speak to anyone other than the patient for history? @ -no Did you review nursing and triage notes? @ -agree Were old charts reviewed? @ -no Differential Diagnosis? @ -no EKG interpreted by me (3pts min.)? @ -no X-rays interpreted by me (1pt min.)? @ -no CT interpreted by me (1pt min.)? @ -no U/S interpreted by me (1pt. min.)? @ -no What testing was considered but not performed? (CT, X-rays, U/S, labs)? Why? @ -no What meds were considered but not given? Why? @ -no Did you discuss the management of the patient with other professionals? @ -no Did you reconcile home meds? @ -no Was smoking cessation discussed for >3mins.? @ -no Was critical care preformed (if so, how long)? @ -no Were there social determinants of health that impacted care today? How? (Homelessness, low income, unemployed, alcoholism, drug addiction, transportati on, low edu. Level, literacy, decrease access to med. care, penitentiary, rehab)? @ -no Was there de-escalation of care discussed even if they declined? (Discuss DNR or withdrawal of care, Hospice)? @ -no What co-morbidities impacted this encounter? (DM, HTN, Smoking, COPD, CAD, Cancer, CVA, Hep., AIDS, mental health diagnosis, sleep apnea, morbid obesity)? @ -no Was patient admitted / discharged? @ -dc Undiagnosed new problem with uncertain prognosis? @ -no Drug Therapy requiring intensive monitoring for toxicity (Heparin, Nitro, Insulin, Cardizem)? @ -no Were any procedures done? @ -no Diagnosis/symptom? @ -no Acute, or Chronic, or Acute on Chronic? @ -no Uncomplicated (without systemic symptoms) or Complicated (systemic symptoms)? @ -no Side effects of treatment? @ -no Exacerbation, Progression, or Severe Exacerbation] @ -no Poses a threat to life or bodily function? @ -no Reevaluation #5: 10/24/22 22:26 Differential Abdominal Pain Women: Appendicitis, Cholecystitis, diverticulosis, ischemic bowel, pancreatitis, hepatitis, UTI, gastroenteritis, AAA, incarcerated hernia, bowel obstruction, constipation, inflammatory bowel, hepatitis, peptic ulcer disease, splenic infarction, perforated viscus, vulvitis, ovarian torsion, PID, kidney stone, placenta abruption, this is not meant to be an all-inclusive list Medical Decision Making - Medical Decision Making 37 female to the emergency department with threatened abortiot here in the ED. Patient does have IUP on ultrasound here in the ER and can be discharged home - Lab Data Lab Results 10/24/22 10/24/22 Range/Units 21:18 21:18 Urine Color Colorless Urine Appearance Clear (Clear) Urine pH 7.0 (5.0-8.0) Ur Specific [place] 1.001 (1.001-1.035) Urine Protein Negative (Negative) Urine Glucose (UA) Negative (Negative) Urine Ketones Negative (Negative) Urine Blood Negative (Negative) Urine Nitrite Negative (Negative) Urine Bilirubin Negative (Negative) Urine Urobilinogen <2.0 (<2.0) mg/dL Ur Leukocyte Esterase Negative (Negative) Urine HCG, Qual Detected (Not Detectd) - Radiology Data Radiology results: report reviewed (Ultrasound positive for IUP), image reviewed Disposition Clinical Impression: Threatened Disposition: HOME SELF-CARE Condition: Good Instructions (If sedation given, give patient instructions): Threatened Miscarriage (ED) Is patient prescribed a controlled substance at d/c from ED?: No Referrals: Sabrina Vicente MD [Primary Care Provider] - 1-2 days Time of Disposition: 21:00
--- NOTE | 2022-10-24 21:30 | US ---
EXAMINATION TYPE: Transabdominal DATE OF EXAM: 10/24/2022 9:03 PM COMPARISON: NONE for this CLINICAL INDICATION: Female, 37 years old with history of vag bleed; Vaginal spotting x 1 day. Hx PCO S, 1 C section, 1 miscarriage, D and C. . EXAM PERFORMED: Transvaginal (TV) and Transabdominal (TA) EXAM MEASUREMENTS: GESTATIONAL AGE / DATING Physician Established: Dates by LMP: (8 weeks/3 days) EDC: 06/02/2023 Dates by First Scan: This is first scan Dates by Current Scan for: (8 weeks/4 days) EDC: 06/01/2023 MATERNAL ANATOMY Uterus: 9.6 x 9.0 x 7.4 cm. Trace anechoic endocervical fluid is present measuring 2.4 x 0.8 x 0.4 cm . Right Ovary: 2.1 x 2.1 x 1.9 cm. Within normal limits. Left Ovary: Not well visualized, thick-walled cystic lesion within the left adnexa is suspected to re present a corpus luteum within the left ovary. Post CDS / Adnexa: No free fluid within the posterior cul-de-sac. Thick-walled cystic lesion within the left adnexa, likely representing a corpus luteum. Presence of free fluid: No Presence of corpus luteal cyst: Suspect a corpus luteum within the left adnexa. Anechoic area within measures: 1.6 1.5 x 1.8 cm. Presence of subchorionic bleed: Complex area seen adjacent to gestational sac: 1.6 x 1.3 x 1.2 cm., S uspicious for subchorionic hemorrhage GESTATION / SURVEY CRL: 1.98 (8 weeks/4 days) Yolk Sac (normal less than 6mm): 3.2 mm Heart Rate: 181 bpm Rhythm: Upper limits of normal. This is nonspecific. IUP: Viable IUP Date of LMP: 08/26/2022 Beta HcG (if available): Not available IMPRESSION: 1. Single live intrauterine gestation with sonographic gestational age of 8 weeks and 4 days per [place] n-rump length. 2. Small subchorionic hemorrhage. 3. Suboptimal visualization of the left ovary. Suspected corpus luteum within the left adnexa.
[2022-10-24 21:46] LABS: Appearance,Urine Clear (Clear); Bilirubin,Urine Negative (Negative); Blood,Urine Negative (Negative); Color,Urine Colorless; Glucose,Urine (UA) Negative (Negative); Ketones,Urine Negative (Negative); Leukocyte Esterase,Urine Negative (Negative); Nitrite,Urine Negative (Negative); Protein,Urine Negative (Negative); Specific Gravity,Urine 1.001 (1.001-1.035); Urobilinogen,Urine <2.0 mg/dL (<2.0)
[2022-10-24 22:34] VITALS: BP 140/70; PULSE 92; RESP 16; TEMP 98
== END 2022-10-24 22:32 | disposition home or self-care (01) ==
LOC: EC 19:43
DX: O20.0 Threatened abortion (principal); O24.111 Pre-existing type 2 diabetes mellitus, in pregnancy, first trimester; O99.341 Other mental disorders complicating pregnancy, first trimester; O99.281 Endocrine, nutritional and metabolic diseases complicating pregnancy, first trimester; O99.350 Diseases of the nervous system complicating pregnancy, unspecified trimester; F31.9 Bipolar disorder, unspecified; F41.9 Anxiety disorder, unspecified; G47.30 Sleep apnea, unspecified; F17.290 Nicotine dependence, other tobacco product, uncomplicated; Z79.890 Hormone replacement therapy; Z79.899 Other long term (current) drug therapy; Z90.49 Acquired absence of other specified parts of digestive tract; Z3A.08 8 weeks gestation of pregnancy
CPT/HCPCS: 76801; 76817; 81003; 81025; 99284

== ENCOUNTER → 2022-11-19 | Outpatient (CLI) | payer MEDICARE, OTHER ==
[2022-11-19 15:52] LABS: HCT 43.7 % (37.2-46.3); HGB 14.9 g/dL (12.0-15.0); MCH 32.3 pg (27.0-32.0); MCHC 34.1 g/dL (32.0-37.0); MCV 94.8 fL (80.0-97.0); Mean Platelet Volume 10.2 fL (9.5-12.2); NRBC Per 100 WBC 0 /100 WBCS (0.0-0.0); Platelet Count 291 X 10*3/uL (140-440); RBC 4.61 X 10*6/uL (4.10-5.20); RDW 12.7 % (11.5-14.5); WBC 12.63 X 10*3/uL (4.50-10.00)
[2022-11-19 16:37] LABS: African American GFR (CKD) 142.3 (60.0-200.0); Albumin 3.9 g/dL (3.8-4.9); Albumin/Globulin Ratio 1.44 (1.60-3.17); BUN/Creat Ratio 15.8 Ratio (12.00-20.00); Blood Urea Nitrogen 7.9 mg/dL (9.0-27.0); Calcium 9.8 mg/dL (8.7-10.3); Globulin 2.7 g/dL (1.6-3.3); Non-African American GFR(CKD) 122.8 (60.0-200.0); Potassium 4.6 mmol/L (3.5-5.5); Total Bilirubin 0.3 mg/dL (0.30-1.20); Total Protein 6.6 g/dL (6.2-8.2)
== END | disposition home or self-care (01) ==
LOC: LABWHC1 09:41
PROVIDERS: ATTEND Surgery
DX: E55.9 Vitamin D deficiency, unspecified (principal); K90.89 Other intestinal malabsorption; E66.01 Morbid (severe) obesity due to excess calories
CPT/HCPCS: 36415; 80053; 82306; 82607; 82746; 83540; 84425; 85027

== ENCOUNTER → 2023-06-01 | Outpatient (CLI) | payer MEDICARE, OTHER ==
[2023-06-01 20:37] LABS: Appearance,Urine Clear (Clear); Bilirubin,Urine Negative (Negative); Blood,Urine Negative (Negative); Color,Urine Colorless; Glucose,Urine (UA) Negative (Negative); Ketones,Urine Negative (Negative); Leukocyte Esterase,Urine Negative (Negative); Nitrite,Urine Negative (Negative); PH, Urine 6.5 (5.0-8.0); Protein,Urine Negative (Negative); Specific Gravity,Urine 1.004 (1.001-1.035); Urobilinogen,Urine <2.0 mg/dL (<2.0)
[2023-06-01 21:22] LABS: ALT 24 U/L (4-34); AST 39 U/L (14-36); African American GFR (CKD) >90 (>60 ml/min/1.73 sqM); Albumin 3.2 g/dL (3.5-5.0); Alkaline Phosphatase 99 U/L (38-126); Anion Gap 10 mmol/L; Blood Urea Nitrogen 10 mg/dL (7-17); Calcium 9.3 mg/dL (8.4-10.2); Carbon Dioxide 21 mmol/L (22-30); Chloride 107 mmol/L (98-107); Glucose 72 mg/dL (74-99); LDH 294 U/L (120-246); Non-African American GFR(CKD) >90 (>60 ml/min/1.73 sqM); Sodium 138 mmol/L (137-145); Total Bilirubin 0.4 mg/dL (0.2-1.3); Total Protein 6.1 g/dL (6.3-8.2); Uric Acid 4.3 mg/dL (3.7-7.4)
[2023-06-01 21:26] LABS: Basophils % (A) 0 %; Eosinophils # (A) 0.3 k/uL (0-0.7); Eosinophils % (A) 3 %; HCT 36.8 % (34.0-46.0); HGB 12.3 gm/dL (11.4-16.0); Lymphocytes # (A) 4.8 k/uL (1.0-4.8); Lymphocytes % (A) 52 %; MCHC 33.4 g/dL (31.0-37.0); MCV 92.9 fL (80.0-100.0); Mean Platelet Volume 8.3; Monocytes # (A) 0.3 k/uL (0-1.0); Monocytes % (A) 3 %; Neutrophils # (A) 3.8 k/uL (1.3-7.7); Neutrophils % (A) 40 %; Platelet Count 316 k/uL (150-450); RBC 3.96 m/uL (3.80-5.40); RDW 14.6 % (11.5-15.5); WBC 9.3 k/uL (3.8-10.6)
[2023-06-01 22:09] VITALS: BP 193/92; PULSE 59; RESP 18; TEMP 97
--- NOTE | 2023-06-06 11:08 | P.MSEPDOC ---
Presenting Problems - Arrival Data Date of Arrival on Unit: 06/01/23 Time of Arrival on Unit: 19:12 Mode of Transport: Wheelchair - Complaint OB-Reason for Admission/Chief Complaint: PIH Medical History - Information : 3 Para: 2 Term: 2 : 0 Abortions: Spontaneous or Elective: 1 Number of Living Children: 2 - Gestational Age Gestational Age by LYNNETTE (wks/days): 41 Weeks and 0 Days Review of Systems - Review of Systems Constitutional: No problems Breast: No problems ENT: No problems Cardiovascular: No problems Respiratory: No problems Gastrointestinal: No problems Genitourinary: No problems Musculoskeletal: No problems Neurological: No problems Skin: No problems Vital Signs - Temperature Temperature: 97.0 F Temperature Source: Temporal Artery Scan - Pulse Right Pulse Rate: 59 Pulse Assessment Method: Automatic Cuff - Respirations Respiratory Rate: 18 Oxygen Delivery Method: Room Air O2 Sat by Pulse Oximetry: 100 - Blood Pressure Right Arm Blood Pressure: 193/92 Blood Pressure Mean: 125 Blood Pressure Source: Automatic Cuff Physician Notification - Physician Notified Physician Notified Date: 06/01/23 Physician Notified Time: 19:39 Physician: Bart Early New Order Received: Yes - Notification Comment Comment: Orders for u/a, cbc with diff, cmp, ldh, uric acid, q 15 minute bp cycles. Maternal Triage Index - Maternal Triage Index Presenting for scheduled procedure w/no complaint: No - Stat/Priority 1 Stat Priority 1: No - Urgent/Priority 2 Urgent Priority 2: Yes Provider Notified: Bart Early Provider Notified Time: 19:39 Criteria Met for Priority 2: SBP>140's Disposition - Disposition OB Disposition: Discharge to home Transferred to:: Home Discharge Date: 06/01/23 Discharge Time: 21:38 I agree with the RN Medical Screening Exam: Yes Physician's MSE Comment: I have neither seen nor examined the patient. Case reviewed; plan agreed upon as documented in EMR&OBIX.: Yes Diagnosis: RELATED CONDITIONS, UNSPECIFIED, THIRD TRIMESTER
== END ==
LOC: FBPOP 19:12
PROVIDERS: ATTEND Obstetrics & Gynecology
DX: O13.3 Gestational [pregnancy-induced] hypertension without significant proteinuria, third trimester (principal); O99.333 Smoking (tobacco) complicating pregnancy, third trimester; F17.200 Nicotine dependence, unspecified, uncomplicated; Z3A.41 41 weeks gestation of pregnancy
CPT/HCPCS: 36415; 80053; 81003; 83615; 84550; 85025; 99215

== ENCOUNTER → 2023-08-03 | Outpatient (CLI) | payer MEDICARE, OTHER ==
[2023-08-03 13:21] VITALS: BP 145/98; PULSE 84; TEMP 98.1; BMI 31.1
--- NOTE | 2023-08-03 14:05 | P.BASOAP ---
Subjective Progress Note Date: 08/03/23 Principal diagnosis: Morbid obesity Patient returns for recheck. Last seen in November of last year. She was at the time. went well and she delivered in May. At the time of delivery she was 89. She has lost considerable weight since then. After her and somewhat during had heartburn that has increased. She is now on omeprazole 40 mg daily. Patient also with some right upper quadrant pain. Usually occurs after meals. History of previous cholecystectomy. Discomforts daily approximately 6 times per day. Will last sometimes a few hours at a time. No rectal bleeding or melena. Objective - Vital Signs Vital signs: Vital Signs Temp 98.1 F 08/03/23 13:11 Pulse 84 08/03/23 13:11 Resp BP 145/98 08/03/23 13:11 Pulse Ox FiO2 Intake & Output 08/02/23 08/03/23 08/03/23 18:59 06:59 18:59 Weight 84.822 kg - Exam Abdomen: Soft, nontender, nondistended Assessment/Plan (1) Morbid obesity with BMI of 45.0-49.9, adult Narrative/Plan: Patient doing well as it pertains to her weight loss. This new right upper quad abdominal pain is concerning. Will proceed with upper endoscopy. If that is normal would consider CT abdomen pelvis. Tentatively plan follow-up in November. Will check to your labs at that time. Plan: Date: 08/03/23 Initial Weight: 130.805 kg Initial BMI: 47.9 Current Weight: 84.822 kg Current BMI: 31.1 Type of Surgery: Total Volume in Band: Previous Volume: Volume Removed: Volume Added: Band Size:
== END ==
LOC: BARWHC3 12:55
PROVIDERS: ATTEND Surgery
DX: E66.01 Morbid (severe) obesity due to excess calories (principal); F17.200 Nicotine dependence, unspecified, uncomplicated; R10.11 Right upper quadrant pain; Z68.31 Body mass index [BMI] 31.0-31.9, adult
CPT/HCPCS: 99211

== ENCOUNTER → 2023-08-31 | Day surgery (SDC) | payer MEDICARE, OTHER ==
[~2023-08-31] MED LIST changes: -DEXAMETHASONE SOD PHOSPHATE 4 MG/ML 1 ML VIAL IV ONE; -ENOXAPARIN 40 MG/0.4 ML SYRINGE SQ PRN; -HYDROmorphone 0.5 MG/0.5 ML SYRINGE IVP PRN; +LACTATED RINGERS 1,000 ML IV SCH; -MIDAZOLAM 2 MG/2 ML VIAL IV PRN; -ONDANSETRON 4 MG/2 ML VIAL IVP ONE; +PROPOFOL 10 MG/ML 20 ML VIAL IV ONE; -ceFAZolin 3 GM in SODIUM CHLORIDE 0.9% 100 ML IVPB PRN
[2023-08-31] MEDS: MIDAZOLAM 2 MG/2 ML VIAL IVP ONE (08:06)
[2023-08-31] MEDS: LACTATED RINGERS 1,000 ML IV ONE (08:06)
--- NOTE | 2023-08-31 08:16 | P.GSHP ---
History of Present Illness H&P Date: 08/31/23 Chief Complaint: Abdominal pain 38-year-old female here for EGD. Patient with history of previous sleeve gastrectomy. Patient has been having epigastric and right upper quadrant pain. Remains on antiacids. Past Medical History Past Medical History: Diabetes Mellitus, Sleep Apnea/CPAP/BIPAP, Thyroid Disorder Additional Past Medical History / Comment(s): DOES NOT USE CPAP. BS NORMAL SINCE SLEEVE SURGERY. Tinea versicolor-fungus on back. Migraines. History of Any Multi-Drug Resistant Organisms: None Reported Past Surgical History: Bariatric Surgery, Section, Cholecystectomy Additional Past Surgical History / Comment(s): Gastric sleeve 11/10/21. C- SECTION, MAY 2023. Past Anesthesia/Blood Transfusion Reactions: Postoperative Nausea & Vomiting (PONV) Additional Past Anesthesia/Blood Transfusion Reaction / Comment(s): Mother=ponv Past Psychological History: Anxiety, Bipolar, Depression, Panic Disorder Smoking Status: Vaper Past Alcohol Use History: None Reported Additional Past Alcohol Use History / Comment(s): quit smoking 1 year ago (2020) and started vaping, quit vaping Jul. hx of 1 ppd, started smoking age 13. Past Drug Use History: None Reported - Past Family History Mother Family Medical History: No Reported History Medications and Allergies Home Medications Medication Instructions Recorded Confirmed Type Levothyroxine Sodium [Synthroid] 88 mcg PO QAM 11/03/14 08/26/23 History lamoTRIgine [LaMICtal] 50 mg PO HS 11/21/21 08/26/23 History Citalopram Hydrobromide [CeleXA] 40 mg PO HS 01/13/22 08/26/23 History Acetaminophen Tab [Tylenol] 650 mg PO Q6H 06/01/23 08/26/23 History Ondansetron [Zofran] 4 mg PO DIRECTED PRN 06/01/23 08/26/23 History Omeprazole 40 mg PO QAM 08/03/23 08/26/23 History ALPRAZolam [Xanax] 0.25 mg PO Q8H PRN 08/26/23 08/26/23 History Allergies Allergy/AdvReac Type Severity Reaction Status Date / Time No Known Allergies Allergy Verified 08/26/23 14:28 Surgical - Exam Vital Signs Temp Pulse Resp BP Pulse Ox 97.2 F L 143 H 22 144/93 98 08/31/23 07:45 08/31/23 07:45 08/31/23 07:45 08/31/23 07:45 08/31/23 07:45 Physical exam: General: Well-developed, well-nourished HEENT: Normocephalic, sclerae nonicteric Abdomen: Nontender, nondistended Extremities: No edema Neuro: Alert and oriented Assessment and Plan (1) GERD (gastroesophageal reflux disease) Narrative/Plan: Will proceed with EGD at this time Current Visit: No Status: Acute Code(s): K21.9 - GASTRO-ESOPHAGEAL REFLUX DISEASE WITHOUT ESOPHAGITIS SNOMED Code(s): 119498341
--- NOTE | 2023-08-31 08:25 | P.PCN ---
Date of Procedure: 08/31/23 Procedure(s) Performed: Preoperative Dx: Abdominal pain Postoperative Dx: Gastritis Procedure: EGD with Bx Anesthesia: Sedation Endoscopist: Dr. Vicente Specimens: Antrum Endoscopic Procedure: The patient was on the endoscopy table in the left decubitus position. The Olympus gastroscope was inserted into the oropharynx and passed under direct visualization to the region of the third portion of the duodenum. From that point the scope was slowly withdrawn inspecting all surfaces carefully. There were no neoplastic inflammatory or polypoid lesions throughout the duodenum. The pylorus was widely patent. The stomach was carefully inspected. There was mild gastritis present. A biopsy of the antrum took place to rule out H. pylori. No retroflexion took place because of the previous sleeve gastrectomy. The sleeve appeared appropriately sized and did not have any atypical narrowing or twisting. The proximal stomach appeared normal. The patient's esophagus likewise appeared normal. There was no obvious hiatal hernia present. The patient was then taken to the recovery room in stable condition per anesthesia guidelines. Recommendations: Continue antiacid therapy. Await biopsy results. Will order CT abdomen pelvis given patient's complaints of right upper quadrant pain.
[2023-08-31 08:32] VITALS: TEMP 97.2
[2023-08-31 09:15] VITALS: BP 115/76; PULSE 88; RESP 18
== END ==
LOC: ORWHC2ENDO 07:13
PROVIDERS: ATTEND Surgery
DX: K29.50 Unspecified chronic gastritis without bleeding (principal); K31.89 Other diseases of stomach and duodenum; E11.9 Type 2 diabetes mellitus without complications; G47.33 Obstructive sleep apnea (adult) (pediatric); F41.9 Anxiety disorder, unspecified; F17.210 Nicotine dependence, cigarettes, uncomplicated; Z79.890 Hormone replacement therapy; Z90.49 Acquired absence of other specified parts of digestive tract; Z98.891 History of uterine scar from previous surgery; Z79.899 Other long term (current) drug therapy
CPT/HCPCS: 88305; 43239; J2250; J2704

== ENCOUNTER → 2024-04-17 | Outpatient (CLI) | payer MEDICARE, OTHER ==
[2024-04-17 11:21] LABS: Uric Acid 3.6 mg/dL (2.9-7.7)
== END | disposition home or self-care (01) ==
LOC: LABWHC1 07:44
PROVIDERS: ATTEND Obstetrics & Gynecology
DX: O13.9 Gestational [pregnancy-induced] hypertension without significant proteinuria, unspecified trimester (principal)
CPT/HCPCS: 36415; 83036; 84450; 84460; 84550

== ENCOUNTER → 2024-05-09 | Outpatient (CLI) | payer MEDICARE, OTHER ==
[2024-05-09 10:40] LABS: T4, Free (Free Thyroxine) 1.03 ng/dL (0.80-1.80)
== END | disposition home or self-care (01) ==
LOC: LABWHC1 07:46
PROVIDERS: ATTEND Obstetrics & Gynecology
DX: Z36.9 Encounter for antenatal screening, unspecified (principal)
CPT/HCPCS: 36415; 84439; 84443; 84450; 84460

== ENCOUNTER → 2024-06-20 | Outpatient (CLI) | payer MEDICARE, OTHER ==
[2024-06-20 15:53] LABS: Basophils # (A) 0.05 X 10*3/uL (0.00-0.10); Basophils % (A) 0.4 %; Eosinophils # (A) 0.11 X 10*3/uL (0.04-0.35); Eosinophils % (A) 0.9 %; HCT 38.5 % (37.2-46.3); HGB 12.6 g/dL (12.0-15.0); Lymphocytes # (A) 3.86 X 10*3/uL (0.90-5.00); Lymphocytes % (A) 30.1 %; MCH 30.3 pg (27.0-32.0); MCHC 32.7 g/dL (32.0-37.0); MCV 92.5 FL (80.0-97.0); Mean Platelet Volume 9.6 FL (9.5-12.2); Monocytes # (A) 0.63 X 10*3/uL (0.20-1.00); Monocytes % (A) 4.9 %; NRBC Per 100 WBC 0 X 10*3/uL (0.00-0.01); Neutrophils # (A) 8.02 X 10*3/uL (1.80-7.70); Neutrophils % (A) 62.4 %; Platelet Count 284 X 10*3/uL (140-440); RBC 4.16 X 10*6/uL (4.10-5.20); RDW 12.4 % (11.5-14.5); WBC 12.84 X 10*3/uL (4.50-10.00)
[2024-06-20 15:59] LABS: % Iron Saturation 8.06 (12.00-45.00)
[2024-06-20 21:18] LABS: HIV 2 AB Non-Reactive (Non-Reactive); HIV AB P24 Non-Reactive (Non-Reactive); HIV P24 AG Non-Reactive (Non-Reactive)
== END | disposition home or self-care (01) ==
LOC: LABWHC1 09:37
PROVIDERS: ATTEND Obstetrics & Gynecology
DX: Z36.9 Encounter for antenatal screening, unspecified (principal)
CPT/HCPCS: 36415; 83540; 83550; 85025; 86780; 87340; 87390